=== PATIENT | female | born 1955 | race Caucasian/White ===

== ENCOUNTER 2016-09-29 19:41 | Emergency (ER) | payer BC ==
[2016-09-29 19:53] VITALS: BP 105/67; PULSE 75; TEMP 97.8; BMI 22.9
[2016-09-29] MEDS ORDERED: SODIUM CHLORIDE 1,000 ML IV STA (20:05)
[2016-09-29] MEDS ORDERED: FAMOTIDINE 20 MG/50 ML IVPB 50 ML IVPB ONE ×2 (20:05→20:23)
[2016-09-29] MEDS ORDERED: ONDANSETRON 4 MG/2 ML VIAL IVPUSH ONE (20:05)
--- NOTE | 2016-09-29 20:08 | PDOC ---
History of Present Illness - General History Source: Patient Exam Limitations: No Limitations - History of Present Illness Initial Comments: 09/29/16 20:08 The patient is a 60 year old female, with a significant past medical history of uterine fibroids, who presents to the emergency department with abdominal pain , nausea and vomit. She reports having 4-5 episodes of vomiting (nonbloody). She denies eating any new food. She reports walking up symptomatic. She reports these symptoms often come yearly or biyearly. She reports recently coming back from [employer] about 7 days ago. She also notes having a decreased appetite. She denies chest pain and shortness of breath. She denies fever, chills, headache and dizziness. She denies constipation. 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) GI Disorders: Yes (ABD PAIN) - Surgical History Abdominal Surgery: Yes (Lap Fibroidectomy) - Psycho/Social/Smoking Cessation Hx Anxiety: No Suicidal Ideation: No Smoking Status: No Smoking History: Unknown if ever smoked Have you smoked in the past 12 months: No Number of Cigarettes Smoked Daily: 0 Information on smoking cessation initiated: No Hx Alcohol Use: No Drug/Substance Use Hx: No Substance Use Type: None Hx Substance Use Treatment: No <Jonas Ferro - Last Filed: 09/29/16 21:34> - Past Medical History Allergies/Adverse Reactions: Allergies Allergy/AdvReac Type Severity Reaction Status Date / Time Penicillins Allergy Intermediate Hives Verified 06/28/12 23:06 Home Medications: Ambulatory Orders Ondansetron HCl [Zofran] 4 - 8 mg PO TID PRN #15 tablet 03/04/15 Phenobarb/Hyoscy/Atropine/Scop [ Elixir -] 5 - 10 ml PO BID PRN #90 ml 03/04/15 Sulfamethoxazole/Trimethoprim [Bactrim Ds -] 1 tab PO BID #14 tablet 03/04/15 Famotidine [Pepcid] 20 mg PO DAILY #7 tablet 09/29/16 Phenobarb/Hyoscy/Atropine/Scop [ Tablet] 16.2 mg PO TID PRN #10 tablet 09/29/16 Review of Systems - Review of Systems Able to Perform ROS?: Yes Is the patient limited Divehi proficient: No Constitutional: Yes: Symptoms Reported, See HPI, Loss of Appetite, Malaise HEENTM: No: Symptoms Reported Respiratory: No: Symptoms reported Cardiac (ROS): No: Symptoms Reported ABD/GI: Yes: Symptoms Reported, See HPI, Nausea, Vomiting : No: Symptoms Reported Neurological: No: Symptoms reported All Other Systems: Reviewed and Negative <Jonas Ferro - Last Filed: 09/29/16 21:34> *Physical Exam - Vital Signs Last Vital Signs Temp Pulse Resp BP Pulse Ox 97.8 F 75 15 105/67 100 09/29/16 19:47 09/29/16 19:47 09/29/16 19:47 09/29/16 19:47 09/29/16 19:47 <Skyler Estrella - Last Filed: 09/29/16 20:08> - Vital Signs Last Vital Signs Temp Pulse Resp BP Pulse Ox 97.8 F 75 15 105/67 100 09/29/16 19:47 09/29/16 19:47 09/29/16 19:47 09/29/16 19:47 09/29/16 19:47 - Physical Exam General Appearance: Yes: Nourished, Appropriately Dressed. No: Apparent Distress HEENT: positive: Normal ENT Inspection, Other (DRY MUCOSAE) Neck: positive: Supple. negative: Tender Respiratory/Chest: negative: Respiratory Distress Cardiovascular: positive: Regular Rhythm, Regular Rate Gastrointestinal/Abdominal: positive: Normal Bowel Sounds, Soft. negative: Tender Musculoskeletal: positive: Normal Inspection. negative: CVA Tenderness, Vertebral Tenderness Integumentary: positive: Normal Color, Dry Neurologic: positive: Fully Oriented, Alert, Normal Mood/Affect, Normal Response , Motor Strength 5/5 <Jonas Ferro - Last Filed: 09/29/16 21:34> *DC/Admit/Observation/Transfer - Attestations Scribe Attestion: 09/29/16 20:09 Documentation prepared by Skyler Estrella, acting as medical billing coordinator for Jonas Ferro MD. <Skyler Estrella - Last Filed: 09/29/16 20:08> <Jonas Ferro - Last Filed: 09/29/16 21:34> Diagnosis at time of Disposition: Acute gastritis Qualifiers: Gastritis type: unspecified gastritis Gastritis bleeding: without bleeding Qualified Code(s): K29.00 - Acute gastritis without bleeding - Discharge Dispostion Disposition: HOME Condition at time of disposition: Improved - Patient Instructions Additional Instructions: TAKE MEDICATIONS PRESCRIBED PLENTY OF FLUIDS (WATER/GATORADE) BLAND DIET, ADVANCE TOLERATED EAT FREQUENT, SMALL MEALS THROUGHOUT THE DAY MAALOX, 30 ml 1/2 HOUR AFTER MEALS AND AT BED TIME RETURN IF FEVER, VOMITING, SEVERE PAIN
[2016-09-29] MEDS ORDERED: ONDANSETRON 4 MG/2 ML VIAL ONE (20:23)
[2016-09-29] MEDS ORDERED: HYOSCYAMINE SULFATE 0.125 MG *ODT PO ONE (21:40)
[2016-09-29] MEDS ORDERED: HYOSCYAMINE SULFATE 0.125 MG *ODT ONE (21:44)
== END 2016-09-29 21:46 | disposition home or self-care (01) ==
LOC: FER 19:41
PROC: 3E033GC Introduction of Other Therapeutic Substance into Peripheral Vein, Percutaneous Approach (ICD-10-PCS; principal; 2016-09-29)
PROC: 3E0337Z Introduction of Electrolytic and Water Balance Substance into Peripheral Vein, Percutaneous Approach (ICD-10-PCS; 2016-09-29)
DX: K29.00 Acute gastritis without bleeding (principal); Z85.048 Personal history of other malignant neoplasm of rectum, rectosigmoid junction, and anus
CPT/HCPCS: 99283-25

== ENCOUNTER 2017-01-30 17:44 | Emergency (ER) | payer BC ==
[2017-01-30 18:07] VITALS: BP 152/91; PULSE 95; TEMP 97.4; BMI 21.9
[2017-01-30] MEDS ORDERED: SODIUM CHLORIDE 0.9% 500 ML INFUS.BAG IV ONE (18:50)
[2017-01-30] MEDS ORDERED: ONDANSETRON 4 MG/2 ML VIAL IVPB ONE (18:50)
[2017-01-30] MEDS ORDERED: ONDANSETRON 4 MG/2 ML VIAL ONE (18:54)
--- NOTE | 2017-01-30 18:54 | PDOC ---
History of Present Illness - General Chief Complaint: Nausea/Vomiting Stated Complaint: ABDOOMINAL PAIN WITH VOMITING WITHLOOSE STOOL Time Seen by Provider: 01/30/17 18:10 - History of Present Illness Initial Comments: 01/30/17 18:51 61-year-old female with a past medical history of anal cancer, for which she was treated with radiation and chemotherapy which was curative, and this was 7 years ago without recurrence She also has a prior history of uterine fibroids Patient is complaining of episodes of crampy abdominal pain, more in her upper midepigastric area, and then episodes of vomiting and diarrhea for the past 24 hours She denies any fevers or chills She states her pain is mostly upper midepigastric She states that these episodes have been going off and on for a few months or she'll have 24-48 hour episodes of the upper midepigastric pain vomiting and diarrhea, and then will resolve She denies any recent travel She has seen a fingernail sculpturer for this She does eat sushi She says her last CAT scan of her abdomen and pelvis was 2-3 years ago She denies any chest pain or shortness of breath She denies any blood in her vomitus She did have one episode of some blood in her stool with the last episode, but not with this episode She denies any other complaints at this time, and the remainder of the review of systems is negative 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) GI Disorders: Yes (ABD PAIN) - Surgical History Abdominal Surgery: Yes (Lap Fibroidectomy) - Psycho/Social/Smoking Cessation Hx Anxiety: No Suicidal Ideation: No Smoking Status: No Smoking History: Never smoked Have you smoked in the past 12 months: No Number of Cigarettes Smoked Daily: 0 Information on smoking cessation initiated: No Hx Alcohol Use: Yes (SOCIAL) Drug/Substance Use Hx: No Substance Use Type: Alcohol Hx Substance Use Treatment: No *Physical Exam - Vital Signs Last Vital Signs Temp Pulse Resp BP Pulse Ox 97.4 F L 95 H 16 152/91 100 01/30/17 17:47 01/30/17 17:47 01/30/17 17:47 01/30/17 17:47 01/30/17 17:47 - Physical Exam Comments: 01/30/17 18:53 Physical exam Last Vital Signs Temp Pulse Resp BP Pulse Ox 97.4 F L 95 H 16 152/91 100 01/30/17 17:47 01/30/17 17:47 01/30/17 17:47 01/30/17 17:47 01/30/17 17:47 GENERAL: The patient is awake, alert, and fully oriented, and in no apparent distress. HEAD: Normal with no signs of trauma. EYES: sclera anicteric, conjunctiva are normal. ENT: nares patent, oropharynx clear without exudates. mucous membranes slightly dry. NECK: Normal range of motion, supple LUNGS: Breath sounds equal, clear to auscultation bilaterally. No wheezes, and no crackles. HEART: Regular rate and rhythm, normal S1 and S2 without murmur, rub or gallop. ABDOMEN: The abdomen is mildly distended but soft There is mild upper midepigastric tenderness to palpation without guarding or rebound No other abdominal tenderness is noted There is no CVA tenderness EXTREMITIES: Normal range of motion, no edema. No clubbing or cyanosis. No cords, erythema, or tenderness. NEUROLOGICAL: Cranial nerves II through XII grossly intact. Normal speech, normal gait. PSYCH: Normal mood, normal affect. SKIN: Warm, Dry, normal turgor, no rashes or lesions noted. ED Treatment Course - LABORATORY CBC & Chemistry Diagram: 01/30/17 18:45 01/30/17 20:20 Medical Decision Making - Medical Decision Making 01/30/17 18:54 Story as noted above, will start with IV hydration and lab work Discussed possible CAT scan with the patient, but she is refusing a CAT scan at this time 01/30/17 19:01 EKG Normal sinus rhythm 83, normal axis Normal AV and IV conduction time Normal QTC There is inferior and septal ST-T wave abnormalities When compared to the EKG of 04/11/14 These EKG abnormalities were present on the 2013 EKG, and were more prominent on the 2013 EKG then on today's EKG 01/30/17 19:11 SIGN OUT Case discussed in detail with oncoming Emergency Physician including history, physical exam and ancillary studies. Oncoming Emergency Physician has assumed care for the patient and will complete the evaluation and treatment. Transfer of care to Dr. calderon at 7 PM awaiting all labwork *DC/Admit/Observation/Transfer Diagnosis at time of Disposition: Enteritis - Discharge Dispostion Disposition: HOME Condition at time of disposition: Stable - Patient Instructions Printed Discharge Instructions: DI for Abdominal Pain-Adult Additional Instructions: light diet as tolerated continue probiotics/psyllium as previously as needed return to ER if pain/ vomiting persists followup with your fingernail sculpturer within 5 days
[2017-01-30 19:24] LABS: BASOPHIL 0.6 % (0-2.0); EOSINOPHIL 0.3 % (0-4.5); MCHC 33.4 g/dl (32.0-36.0); MEAN PLT VOLUME 9.6 fl (7.5-11.1); NEUTROPHILS 83.2 % (42.8-82.8); PLATELET COUNT 223 K/MM3 (134-434); RDW 13.4 % (11.6-15.6); WHITE BLOOD COUNT 11.4 K/mm3 (4.0-10.8)
[2017-01-30] MEDS ORDERED: ACETAMINOPHEN INJECTION 100 ML IVPB ONE (19:24)
[2017-01-30] MEDS ORDERED: ACETAMINOPHEN 1000 MG/100 ML VIAL (NON FORMULARY) IVPB ONE (19:26)
--- NOTE | 2017-01-30 19:26 | PDOC ---
*Physical Exam - Vital Signs Last Vital Signs Temp Pulse Resp BP Pulse Ox 97.4 F L 95 H 16 152/91 100 01/30/17 17:47 01/30/17 17:47 01/30/17 17:47 01/30/17 17:47 01/30/17 17:47 ED Treatment Course - LABORATORY CBC & Chemistry Diagram: 01/30/17 18:45 01/30/17 20:20 - Medications Given in the ED: ED Medications Discontinued Medications Generic Name Dose Route Start Last Admin Trade Name Nba PRN Reason Stop Dose Admin Ondansetron HCl 4 mg 01/30/17 18:50 01/30/17 18:55 Zofran Injection IVPB 01/30/17 18:51 4 mg ONCE ONE Administration Sodium Chloride 1,000 ml 01/30/17 18:50 01/30/17 18:53 Normal Saline - IV 01/30/17 18:51 1,000 ml ONCE ONE Administration Progress Note - Progress Note Progress Note: Care of this patient received from Dr. Gonzalez. Patient felt somewhat improved after IV hydration and Zofran 4 mg IV (states that her nausea is now resolved). She was given 1 g of acetaminophen IV for residual discomfort in her abdomen. The patient states that this medication (acetaminophen) was not effective for her cramping type pain. She states that in the past, she was given IV Reglan for this type of discomfort and this was very effective. Patient has persistent thirst and on exam, mucous membranes are still dry. Patient will be given Reglan 10 mg IV as well as another liter of normal saline IV. Patient comfortable after Reglan and additional liter of normal saline. She states that she still has at home from previous episodes of this type of pain. She states that this has been effective for her mild residual cramping type pain. She has never used other antispasmodic medications such as Bentyl/Levsin. Patient currently has a manufacturing technician and has been advised to follow-up with her manufacturing technician in the near future. Patient will be discharged with instructions to continue her light diet, advancing as tolerated. She has used probiotics and psyllium in the past to avoid but has been described as partial small bowel obstruction secondary to her radiation treatments. She should continue probiotics and psyllium. She should return to the ER if she has persistent nausea/abdominal distention and pain *DC/Admit/Observation/Transfer Diagnosis at time of Disposition: Enteritis - Discharge Dispostion Disposition: HOME Condition at time of disposition: Stable - Patient Instructions Printed Discharge Instructions: DI for Abdominal Pain-Adult Additional Instructions: light diet as tolerated continue probiotics/psyllium as previously as needed return to ER if pain/ vomiting persists followup with your manufacturing technician within 5 days
[2017-01-30 20:42] LABS: ALBUMIN 3.7 g/dl (3.5-5.0); ALK PHOS 56 U/L (32-92); ANION GAP 12 (8-16); BILIRUBIN,TOTAL 1.1 mg/dl (0.2-1.0); CALCIUM 9.2 mg/dl (8.4-10.2); CO2 22 mmol/L (22-28); COCKROFT - GAULT 79.7725; CREATININE 0.7 mg/dl (0.6-1.3); GLUCOSE,RANDOM 106 mg/dl (74-106); MAGNESIUM 1.7 mg/dL (1.8-2.4); SGOT/AST 23 U/L (10-42); SGPT/ALT 19 U/L (10-40); TOT PROT 6.4 g/dl (6.4-8.3)
[2017-01-30 20:47] LABS: CPK(DFH) 96 IU/L (26-140)
[2017-01-30 20:54] LABS: TROPONIN I (DFP) < 0.03 ng/ml (0.03-0.50)
[2017-01-30] MEDS ORDERED: METOCLOPRAMIDE HCL INJECTION 10 MG/2 ML VIAL IVPB ONE (20:54)
[2017-01-30] MEDS ORDERED: SODIUM CHLORIDE 1,000 ML IV STA (20:55)
[2017-01-30] MEDS ORDERED: KETOROLAC TROMETHAMINE 30 MG/1 ML VIAL IVPUSH ONE (21:41)
[2017-01-30] MEDS ORDERED: KETOROLAC TROMETHAMINE 30 MG/1 ML VIAL ONE (21:55)
--- NOTE | 2017-01-31 13:55 | EKG ---
Test Reason : Blood Pressure : / mmHG Vent. Rate : 083 BPM Atrial Rate : 083 BPM P-R Int : 142 ms QRS Dur : 090 ms QT Int : 384 ms P-R-T Axes : 028 076 005 degrees QTc Int : 451 ms NORMAL SINUS RHYTHM POSSIBLE LEFT ATRIAL ENLARGEMENT NONSPECIFIC ST AND T WAVE ABNORMALITY NO PREVIOUS ECGS AVAILABLE Confirmed by MD OFELIA, SIN ([id number]) on 01/31/2017 1:55:26 PM Referred By: JUDE Confirmed By:SIN GILBERT MD
== END 2017-01-30 22:18 | disposition home or self-care (01) ==
LOC: FER 17:44
PROC: 3E0333Z Introduction of Anti-inflammatory into Peripheral Vein, Percutaneous Approach (ICD-10-PCS; principal; 2017-01-30)
PROC: 3E033NZ Introduction of Analgesics, Hypnotics, Sedatives into Peripheral Vein, Percutaneous Approach (ICD-10-PCS; 2017-01-30)
PROC: 3E033GC Introduction of Other Therapeutic Substance into Peripheral Vein, Percutaneous Approach (ICD-10-PCS; 2017-01-30)
PROC: 3E0337Z Introduction of Electrolytic and Water Balance Substance into Peripheral Vein, Percutaneous Approach (ICD-10-PCS; 2017-01-30)
DX: K52.9 Noninfective gastroenteritis and colitis, unspecified (principal); Z85.048 Personal history of other malignant neoplasm of rectum, rectosigmoid junction, and anus
CPT/HCPCS: 36415; 80053; 82550; 83690; 83735; 84484; 85025; 93005; 99283-25

== ENCOUNTER 2017-03-25 16:05 | Emergency (ER) | payer BC ==
[2017-03-25 16:11] VITALS: BMI 22.4
--- NOTE | 2017-03-25 16:50 | PDOC ---
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 The patient reports this is her 3rd ED visit this year for the same symptoms. The patient reports her last meal was at 5PM last night. She reports two episodes of diarrhea late last night, but states she usually has loose stool. She reports her last meal was at 5pm last night. She reports she gets waves of nausea, resulting in emesis. She denies hematemesis or hematochezia. She states eating food does not exacerbate or alleviate her symptoms. She reports waking up with abdominal cramping, localized to her epigastric region, which has been progressing in severity since the initial onset. She also states she "feels bloated" today, however, states that her abdomen "bloats whenever I experience these symptoms." She states she has not had an abdomen CT since 2013, but reports a negative colonoscopy in 2015. She denies chest pain, shortness of breath, headache and dizziness. She denies fever, chills, and constipation. She denies dysuria, frequency, urgency and hematuria. Allergies: NKDA Health Insurance Adjuster - Dr. 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) GI Disorders: Yes (ABD PAIN) - Surgical History Abdominal Surgery: Yes (Lap Fibroidectomy) - Psycho/Social/Smoking Cessation Hx Anxiety: No Suicidal Ideation: No Smoking Status: No Smoking History: Never smoked Have you smoked in the past 12 months: No Number of Cigarettes Smoked Daily: 0 Information on smoking cessation initiated: No Hx Alcohol Use: No Drug/Substance Use Hx: No Substance Use Type: Alcohol Hx Substance Use Treatment: No <Tia Cuba - Last Filed: 03/26/17 08:19> - Past Medical History Allergies/Adverse Reactions: Allergies Allergy/AdvReac Type Severity Reaction Status Date / Time Penicillins Allergy Intermediate Hives Verified 01/30/17 17:48 Home Medications: Ambulatory Orders NK [No Known Home Medication] 01/30/17 Review of Systems - Review of Systems Able to Perform ROS?: Yes Comments:: 03/25/17 17:12 GENERAL/CONSTITUTIONAL: No fever or chills. No weakness. HEAD, EYES, EARS, NOSE AND THROAT: No change in vision. No ear pain or discharge. No sore throat. CARDIOVASCULAR: No chest pain or shortness of breath. RESPIRATORY: No cough, wheezing, or hemoptysis. GASTROINTESTINAL: (+) nausea, vomiting, diarrhea, abdominal bloating, epigastric cramping. No constipation. GENITOURINARY: No dysuria, frequency, or change in urination. MUSCULOSKELETAL: No joint or muscle swelling or pain. No neck or back pain. SKIN: No rash NEUROLOGIC: No headache, vertigo, loss of consciousness, or change in strength/ sensation. ENDOCRINE: No increased thirst. No abnormal weight change. HEMATOLOGIC/LYMPHATIC: No anemia, easy bleeding, or history of blood clots. ALLERGIC/IMMUNOLOGIC: No hives or skin allergy. <Stephanie Gillespie - Last Filed: 03/25/17 17:11> *Physical Exam - Vital Signs Last Vital Signs Temp Pulse Resp BP Pulse Ox 98.8 F 84 18 117/80 100 03/25/17 16:06 03/25/17 16:06 03/25/17 16:06 03/25/17 16:06 03/25/17 16:06 - Physical Exam Comments: 03/25/17 17:13 GENERAL: Awake, alert, and fully oriented, in no acute distress HEAD: No signs of trauma EYES: PERRLA, EOMI, sclera anicteric, conjunctiva clear ENT: (+) Dry mucosa. Auricles normal inspection, hearing grossly normal, nares patent, oropharynx clear without exudates. NECK: Normal ROM, supple, no lymphadenopathy, JVD, or masses LUNGS: Breath sounds equal, clear to auscultation bilaterally. No wheezes, and no crackles HEART: Regular rate and rhythm, normal S1 and S2, no murmurs, rubs or gallops ABDOMEN: (+) distended. tender to the epigastric region with mild tenderness to the RLQ. Soft, normoactive bowel sounds. No guarding, no rebound. No masses EXTREMITIES: Normal range of motion, no edema. No clubbing or cyanosis. No cords, erythema, or tenderness NEUROLOGICAL: Cranial nerves II through XII grossly intact. Normal speech, normal gait SKIN: Warm, Dry, normal turgor, no rashes or lesions noted. <Stephanie Gillespie - Last Filed: 03/25/17 17:11> - Vital Signs Last Vital Signs Temp Pulse Resp BP Pulse Ox 98.8 F 84 18 117/80 100 03/25/17 16:06 03/25/17 16:06 03/25/17 16:06 03/25/17 16:06 03/25/17 16:06 - Physical Exam Comments: GENERAL: Awake, alert, and fully oriented, in no acute distress HEAD: No signs of trauma EYES: PERRLA, EOMI, sclera anicteric, conjunctiva clear ENT: Auricles normal inspection, hearing grossly normal, nares patent, oropharynx clear without exudates. Dry mucosa NECK: Normal ROM, supple, no lymphadenopathy, JVD, or masses LUNGS: Breath sounds equal, clear to auscultation bilaterally. No wheezes, and no crackles HEART: Regular rate and rhythm, normal S1 and S2, no murmurs, rubs or gallops ABDOMEN: Soft, +gaseous distension, with epigastric tenderness. Normoactive bowel sounds. No rebound. No masses EXTREMITIES: Normal range of motion, no edema. No clubbing or cyanosis. No cords , erythema, or tenderness NEUROLOGICAL: Cranial nerves II through XII grossly intact. Normal speech, normal gait SKIN: Warm, Dry, normal turgor, no rashes or lesions noted. 03/25/17 17:05 <Tia Cuba - Last Filed: 03/26/17 08:19> ED Treatment Course - LABORATORY CBC & Chemistry Diagram: 03/25/17 17:29 03/25/17 17:29 <Tia Cuba - Last Filed: 03/26/17 08:19> Medical Decision Making - Medical Decision Making 03/25/17 19:[address] Etienne at shift change. Patient has history of rectal CA s/p radiation, known to have scarring. She has been told in the past that she must take fiber to avoid constipation due to the scarring. On exam, she appears dehydrated and uncomfortable. She was notably tender to RLQ with distended abdomen, which she states has had with prior similar episodes of same symptoms. On repeat exam she continues to have "soreness" on palpation of the RLQ. XR shows significant constipation. <Tia Cuba - Last Filed: 03/26/17 08:19> *DC/Admit/Observation/Transfer - Attestations Scribe Attestion: 03/25/17 17:14 Documentation prepared by Stephanie Gillespie, acting as durable medical equipment technician for Tia Cuba MD, <Stephanie Gillespie - Last Filed: 03/25/17 17:11> <Tia Cuba - Last Filed: 03/26/17 08:19> Diagnosis at time of Disposition: History of abdominal pain - Discharge Dispostion Disposition: HOME Condition at time of disposition: Stable - Patient Instructions Printed Discharge Instructions: DI for Abdominal Pain-Adult Additional Instructions: light diet, advance slowly drink plenty of fluids pepcid 20 mg daily can take miralax daily as needed followup with repair clerk within 5 days return to ER immediately if pain worsens or you develop vomiting/fever
[2017-03-25] MEDS ORDERED: SODIUM CHLORIDE 1,000 ML IV STA ×2 (17:02→19:11)
[2017-03-25] MEDS ORDERED: morphine CARPU-JECT 4 MG/1 ML DISP.SYRIN IVPUSH ONE (17:02)
[2017-03-25] MEDS ORDERED: ONDANSETRON 4 MG/2 ML VIAL IVPUSH ONE (17:02)
[2017-03-25] MEDS ORDERED: morphine CARPU-JECT 4 MG/1 ML DISP.SYRIN ONE (17:13)
[2017-03-25] MEDS ORDERED: ONDANSETRON 4 MG/2 ML VIAL ONE (17:13)
[2017-03-25] MEDS ORDERED: FAMOTIDINE 20 MG/50 ML IVPB 50 ML IVPB ONE ×2 (17:20→17:22)
[2017-03-25 17:59] LABS: BASOPHIL 0.3 % (0-2.0); EOSINOPHIL 0.2 % (0-4.5); MCH 30.1 pg (25.7-33.7); MCHC 33.5 g/dl (32.0-36.0); MEAN CELL VOLUME 89.9 fl (80-96); MEAN PLT VOLUME 9.4 fl (7.5-11.1); PLATELET COUNT 215 K/MM3 (134-434); RDW 12.9 % (11.6-15.6); WHITE BLOOD COUNT 10.6 K/mm3 (4.0-10.8)
[2017-03-25 18:10] LABS: ALBUMIN 4.3 g/dl (3.5-5.0); ALK PHOS 53 U/L (32-92); ANION GAP 8 (8-16); BILIRUBIN,TOTAL 1.2 mg/dl (0.2-1.0); CALCIUM 9.6 mg/dl (8.4-10.2); CO2 25 mmol/L (22-28); CREATININE 0.7 mg/dl (0.6-1.3); GLUCOSE,RANDOM 101 mg/dl (74-106); SGOT/AST 16 U/L (10-42); SGPT/ALT 17 U/L (10-40); TOT PROT 6.9 g/dl (6.4-8.3)
--- NOTE | 2017-03-25 19:17 | PDOC ---
*Physical Exam - Vital Signs Last Vital Signs Temp Pulse Resp BP Pulse Ox 98.8 F 84 18 117/80 100 03/25/17 16:06 03/25/17 16:06 03/25/17 16:06 03/25/17 17:20 03/25/17 16:06 - Physical Exam Comments: GENERAL: Adult female, alert and oriented 3, in no acute distress ENT: Dry mucous membranes. ABDOMEN:.Hypoactive bowel sounds, soft, mildly distended ; mild tenderness suprapubic region just to the right of midline No guarding,tenderness or rebound.No masses ED Treatment Course - LABORATORY CBC & Chemistry Diagram: 03/25/17 17:29 03/25/17 17:29 - ADDITIONAL ORDERS Additional order review: Laboratory Results 03/25/17 17:29 Sodium 135 L Potassium 4.2 Chloride 102 Carbon Dioxide 25 Anion Gap 8 BUN 12 Creatinine 0.7 Creat Clearance w eGFR > 60 Random Glucose 101 Calcium 9.6 Total Bilirubin 1.2 H AST 16 D ALT 17 Alkaline Phosphatase 53 Total Protein 6.9 Albumin 4.3 Lipase 32 03/25/17 17:29 RBC 5.39 H MCV 89.9 MCHC 33.5 RDW 12.9 MPV 9.4 Neutrophils % 84.0 H Lymphocytes % 8.5 Monocytes % 7.0 Eosinophils % 0.2 Basophils % 0.3 - Medications Given in the ED: ED Medications Discontinued Medications Generic Name Dose Route Start Last Admin Trade Name Freq PRN Reason Stop Dose Admin Sodium Chloride 1,000 mls @ 1,000 mls/hr 03/25/17 17:02 03/25/17 17:20 Normal Saline - IV 03/25/17 18:01 1,000 mls/hr ASDIR STA Administration Famotidine/Sodium Chloride 50 mls @ 100 mls/hr 03/25/17 17:20 03/25/17 17:24 Pepcid 20 Mg Premixed Ivpb - IVPB 03/25/17 17:49 100 mls/hr ONCE ONE Administration Morphine Sulfate 4 mg 03/25/17 17:02 03/25/17 17:21 Morphine Injection - IVPUSH 03/25/17 17:03 4 mg ONCE ONE Administration Ondansetron HCl 4 mg 03/25/17 17:02 03/25/17 17:21 Zofran Injection IVPUSH 03/25/17 17:03 4 mg ONCE ONE Administration Medical Decision Making - Medical Decision Making 03/25/17 20:42 Care of this patient received from Dr. Cuba. Patient receiving second liter of normal saline IV. She continues to be comfortable without recurrence of severe abdominal pain or nausea. Patient reexamined (had been examined by me at sign out, 7 PM). There is less tenderness at the area to the right of midline, suprapubic region then observed on first examination. Patient discharged with instructions to continue light diet and advance slowly. If at any time, she develops worsening pain, fever or vomiting, she should return to the emergency room. Pepcid 20 mg daily should be continued She asked if she could take MiraLAX if she has constipation and this also could be taken as needed The patient needs to follow up with a hose tender. Although she likes her current hose tender and he has seen her for a long time, she feels she might benefit by a second opinion. She has a friend who is followed by a hose tender at [place] and is very satisfied with his care; she plans to see this hose tender in the near future. *DC/Admit/Observation/Transfer Diagnosis at time of Disposition: History of abdominal pain - Discharge Dispostion Disposition: HOME Condition at time of disposition: Stable - Patient Instructions Printed Discharge Instructions: DI for Abdominal Pain-Adult Additional Instructions: light diet, advance slowly drink plenty of fluids pepcid 20 mg daily can take miralax daily as needed followup with hose tender within 5 days return to ER immediately if pain worsens or you develop vomiting/fever
[2017-03-25 20:22] VITALS: BP 116/68; PULSE 76; TEMP 98.4
== END 2017-03-25 21:10 | disposition home or self-care (01) ==
LOC: FER 16:05
PROC: 3E033GC Introduction of Other Therapeutic Substance into Peripheral Vein, Percutaneous Approach (ICD-10-PCS; principal; 2017-03-25)
PROC: 3E033NZ Introduction of Analgesics, Hypnotics, Sedatives into Peripheral Vein, Percutaneous Approach (ICD-10-PCS; 2017-03-25)
PROC: 3E0337Z Introduction of Electrolytic and Water Balance Substance into Peripheral Vein, Percutaneous Approach (ICD-10-PCS; 2017-03-25)
DX: R10.9 Unspecified abdominal pain (principal); Z85.048 Personal history of other malignant neoplasm of rectum, rectosigmoid junction, and anus
CPT/HCPCS: 36415; 74020-TC; 80053; 83690; 85025; 99283-25

== ENCOUNTER 2017-04-03 04:06 | Emergency (ER) | payer BC ==
--- NOTE | 2017-04-03 04:10 | PDOC ---
History of Present Illness - General Chief Complaint: Pain, Acute Stated Complaint: RECURRING ABD PAIN Time Seen by Provider: 04/03/17 04:09 History Source: Patient Exam Limitations: No Limitations - History of Present Illness Initial Comments: 04/03/17 04:34 This is a 61-year-old female who has history of intermittent severe abdominal pain. Patient is had multiple visits to this emergency department for evaluation of her abdominal pain. Patient pain is associated with some nausea vomiting and she denies any fevers, diarrhea. Patient said her pain is primarily upper abdominal area epigastric area and associated with some abdominal distention. Patient's describes the pain as crampy PAST MEDICAL HISTORY: no significant history PAST SURGICAL HISTORY: no significant history FAMILY HISTORY: no pertinant history SOCIAL HISTORY: Pt lives with family and is employed. MEDICATIONS: reviewed ALLERGIES: As per nursing notes General: No fevers or chills, no weakness, no weight loss HEENT: No change in vision. No sore throat,. No ear pain CardioVascular: No chest pain or shortness of breath Respiratory:No cough, or wheezing. Gastrointestinal: no nausea, vomitting, diarrhea or constipation, No rectal bleeding Genitourinary: No dysuria, hematuria, or frequency Musculoskeletal: No joint or muscle pain or swelling Neurologic: No headache, vertigo, dizziness or loss of consciousness Psychiatric: nor depression Skin: No rashes or easy bruising Endocrine: no increased thirst or abnormal weight change Allergic: no skin or latex allergy All other systems reviewed and normal Exam: General: Well-nourished well-developed individual, no acute distress HEENT: Throat: Normal, tonsils normal, no erythema or exudate Neck: Supple, no meningeal signs, no lymphadenopathy Eyes::Pupils equal reactive and round, extraocular motion intact Chest: Nontender to palpation Cardiac: S1-S2 normal, regular rate and rhythm, no murmurs rubs or gallops Respiratory: Lungs clear to auscultation bilateral Abdomen: Soft, nondistended, normal bowel sounds, mildly tender to palpation across the upper abdomen no guarding or rebound there is some mild distention of the mid abdomen Extremities: Warm, dry, no cyanosis, clubbing, or edema Skin: No rashes Neuro: Alert and oriented x3, nonfocal exam, grossly intact, normal gait Psych: Normal mood and affect Patient was treated with IV fluids, antispasmodics, and some pain medication. Patient feels better, her workup was normal and that she was discharged home with her . Patient has a primary care doctor that she can follow-up with. 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) GI Disorders: Yes (ABD PAIN) - Surgical History Abdominal Surgery: Yes (Lap Fibroidectomy) - Psycho/Social/Smoking Cessation Hx Anxiety: No Suicidal Ideation: No Smoking Status: No Smoking History: Never smoked Have you smoked in the past 12 months: No Number of Cigarettes Smoked Daily: 0 Hx Alcohol Use: No Drug/Substance Use Hx: No Substance Use Type: Alcohol Hx Substance Use Treatment: No ED Treatment Course - LABORATORY CBC & Chemistry Diagram: 04/03/17 04:49 04/03/17 04:49 *DC/Admit/Observation/Transfer Diagnosis at time of Disposition: Abdominal pain - Discharge Dispostion Disposition: HOME Condition at time of disposition: Stable Admit: No - Patient Instructions Additional Instructions: Follow-up with a GI doctor regarding her abdominal pain. Return to the emergency department immediately with ANY new, persistent or worsening symptoms. Continue any medications as previously prescribed by your physician. You should follow up with your primary doctor as soon as possible regarding today's emergency department visit. . Please make sure your doctor reviews the results of your emergency evaluation. Thank you for coming to the Emergency Department today for your care. It was a pleasure to see you today. Please note that your evaluation is INCOMPLETE until you follow-up with your doctor.
[2017-04-03 04:16] VITALS: BP 142/90; PULSE 83; TEMP 97.9; BMI 22.4
[2017-04-03] MEDS ORDERED: HYOSCYAMINE SULFATE 0.125 MG *ODT PO ONE (04:33)
[2017-04-03] MEDS ORDERED: FAMOTIDINE 20 MG/50 ML IVPB 50 ML IVPB ONE ×2 (04:33→04:42)
[2017-04-03] MEDS ORDERED: SODIUM CHLORIDE 1,000 ML IV ONE (04:34)
[2017-04-03] MEDS ORDERED: morphine CARPU-JECT 4 MG/1 ML DISP.SYRIN IVPUSH ONE (04:34)
[2017-04-03] MEDS ORDERED: ONDANSETRON 4 MG/2 ML VIAL IVPB ONE (04:35)
[2017-04-03] MEDS ORDERED: ONDANSETRON 4 MG/2 ML VIAL ONE (04:42)
[2017-04-03] MEDS ORDERED: morphine CARPU-JECT 4 MG/1 ML DISP.SYRIN ONE (04:42)
[2017-04-03] MEDS ORDERED: HYOSCYAMINE SULFATE 0.125 MG *ODT ONE (04:42)
[2017-04-03 05:54] LABS: BASOPHIL 0.3 % (0-2.0); EOSINOPHIL 0.2 % (0-4.5); MCH 30.1 pg (25.7-33.7); MCHC 33.4 g/dl (32.0-36.0); MEAN CELL VOLUME 90.2 fl (80-96); MEAN PLT VOLUME 9.7 fl (7.5-11.1); NEUTROPHILS 83.2 % (42.8-82.8); PLATELET COUNT 201 K/MM3 (134-434); RDW 13.4 % (11.6-15.6); WHITE BLOOD COUNT 7.6 K/mm3 (4.0-10.0)
[2017-04-03 06:16] LABS: ALBUMIN 3.6 g/dl (3.4-5.0); ALK PHOS 54 U/L (45-117); ANION GAP 8 (8-16); BILIRUBIN,TOTAL 0.4 mg/dL (0.2-1.0); CALCIUM 9.5 mg/dL (8.5-10.1); CO2 26 mmol/L (21-32); CREATININE 0.7 mg/dL (0.55-1.02); GLUCOSE,RANDOM 117 mg/dL (74-106); SGOT/AST 16 U/L (15-37); SGPT/ALT 26 U/L (12-78); TOT PROT 6.5 g/dl (6.4-8.2)
[2017-04-03 07:00] LABS: TROPONIN I < 0.02 ng/ml (0.00-0.05)
--- NOTE | 2017-04-04 08:27 | EKG ---
Test Reason : Blood Pressure : / mmHG Vent. Rate : 077 BPM Atrial Rate : 077 BPM P-R Int : 132 ms QRS Dur : 094 ms QT Int : 408 ms P-R-T Axes : 030 060 017 degrees QTc Int : 461 ms SINUS RHYTHM POSSIBLE LEFT ATRIAL ENLARGEMENT NONSPECIFIC ST AND T WAVE ABNORMALITY WHEN COMPARED WITH ECG OF 30-JAN-2017 18:47, T WAVE INVERSION LESS EVIDENT IN ANTERIOR LEADS Confirmed by LEANNA MARIN MD ([id number]) on 04/04/2017 8:26:58 AM Referred By: MD LONG Confirmed By:LEANNA MARIN MD
== END 2017-04-03 06:57 | disposition home or self-care (01) ==
LOC: FER 04:06
PROC: 3E033GC Introduction of Other Therapeutic Substance into Peripheral Vein, Percutaneous Approach (ICD-10-PCS; principal; 2017-04-03)
PROC: 3E033NZ Introduction of Analgesics, Hypnotics, Sedatives into Peripheral Vein, Percutaneous Approach (ICD-10-PCS; 2017-04-03)
PROC: 3E0337Z Introduction of Electrolytic and Water Balance Substance into Peripheral Vein, Percutaneous Approach (ICD-10-PCS; 2017-04-03)
DX: R10.13 Epigastric pain (principal); Z85.048 Personal history of other malignant neoplasm of rectum, rectosigmoid junction, and anus
CPT/HCPCS: 36415; 80053; 82550; 82553; 83690; 84484; 85025; 93005; 99283-25

== ENCOUNTER 2017-05-06 23:15 | Emergency (ER) | payer BC ==
[2017-05-06 23:31] VITALS: BP 136/90; PULSE 82; TEMP 98; BMI 22.4
[2017-05-07] MEDS ORDERED: FAMOTIDINE 20 MG/50 ML IVPB 50 ML IVPB ONE ×2 (00:19→01:08)
[2017-05-07] MEDS ORDERED: ONDANSETRON 4 MG/2 ML VIAL ONE (00:22)
--- NOTE | 2017-05-07 00:51 | PDOC ---
History of Present Illness - General Chief Complaint: Pain Stated Complaint: N/V/ABD PAIN Time Seen by Provider: 05/07/17 00:30 - History of Present Illness Initial Comments: This 61-year-old woman with a history of recurrent epigastric pain presents with several hour history of her usual epigastric discomfort accompanied by nausea and vomiting. Patient states she has vomited twice in the last several hours; vomitus was partially digested food without blood or coffee ground material. Patient has had recent workup by a new emergency medicine specialist. She states that she is on a new dietary regimen, which has worked to prevent further episodes of epigastric pain until tonight. She believes she may have eaten too much broccoli over the last 24 hours. She denies fever or chills ; no changes in bowel movements. 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) GI Disorders: Yes (ABD PAIN) - Surgical History Abdominal Surgery: Yes (Lap Fibroidectomy) - Psycho/Social/Smoking Cessation Hx Anxiety: No Suicidal Ideation: No Smoking Status: No Smoking History: Never smoked Have you smoked in the past 12 months: No Number of Cigarettes Smoked Daily: 0 Hx Alcohol Use: No Drug/Substance Use Hx: No Substance Use Type: Alcohol Hx Substance Use Treatment: No Review of Systems - Review of Systems Able to Perform ROS?: Yes Comments:: 12 point review of systems is negative except for what is noted in the history of present illness *Physical Exam - Vital Signs Last Vital Signs Temp Pulse Resp BP Pulse Ox 98 F 82 18 136/90 99 05/06/17 23:29 05/06/17 23:29 05/06/17 23:29 05/06/17 23:29 05/06/17 23:29 - Physical Exam Comments: GENERAL: Adult female, alert and oriented 3, in moderate distress secondary to epigastric pain HEAD: Normal with no signs of trauma. EYES: PERRLA, EOMI, sclera anicteric, conjunctiva clear. ENT: Ears normal, nares patent, oropharynx clear without exudates. Dry mucous membranes. NECK: Normal range of motion, supple without lymphadenopathy, JVD, or masses. LUNGS: Breath sounds equal, clear to auscultation bilaterally. No wheezes, and no crackles. HEART:Regular rate and rhythm, normal S1 and S2 without murmur, rub or gallop. ABDOMEN:.normal bowel sounds . Moderate epigastric tenderness. No guarding or rebound.No masses No distention. EXTREMITIES: Normal range of motion, no edema. No clubbing or cyanosis. No erythema, or tenderness. NEUROLOGICAL: Cranial nerves II through XII grossly intact. Normal speech. No focal neurological deficits. MUSCULOSKELETAL: Back non-tender to palpation, no CVA tenderness SKIN: Warm, Dry, normal turgor, no rashes or lesions noted. Progress Note - Progress Note Progress Note: This 61-year-old woman, with a long history of recurrent abdominal pain presents with several hour history of her usual epigastric pain accompanied by nausea and vomiting. Patient believes that today's episode may be related to excessive fiber (broccoli) in her diet over the last 24 hours. There is no history of hematemesis/coffee ground vomitus. Exam reveals some epigastric tenderness but no peritoneal signs. There is no abdominal distention and bowel sounds are normal. Patient describes the pain as her "usual" pain, and it is not accompanied by evidence of small bowel obstruction. The patient was given Zofran 4 mg IV followed by Pepcid 20 mg IV. After this, she had no nausea and no further vomiting. Patient states in the past that one dose of morphine has been effective in resolving the pain. Since the patient does not appear to be obstructed and the patient has a known history of chronic epigastric pain, morphine 4 mg IV administered. Soon after morphine IV given, the patient was comfortable and ready to go home. She had no further nausea/vomiting. She will call her emergency medicine specialist to schedule follow-up. She should return to the emergency room if she has any recurrent pain/vomiting or develops fever *DC/Admit/Observation/Transfer Diagnosis at time of Disposition: Chronic abdominal pain - Discharge Dispostion Disposition: HOME Condition at time of disposition: Stable - Referrals Referrals: STAFF,NOT ON [Primary Care Provider] - - Patient Instructions Printed Discharge Instructions: DI for Abdominal Pain-Adult Additional Instructions: continue dietary regimen as previously discussed with your doctor return to ER if severe, persistent abdominal pain or nausea/vomiting occurs call your doctor on Tuesday(05/06) and followup as scheduled
[2017-05-07] MEDS ORDERED: morphine CARPU-JECT 4 MG/1 ML DISP.SYRIN IVPUSH ONE (01:02)
[2017-05-07] MEDS ORDERED: morphine CARPU-JECT 4 MG/1 ML DISP.SYRIN ONE (01:05)
[2017-05-07] MEDS ORDERED: ONDANSETRON 4 MG/2 ML VIAL IVPUSH ONE (01:09)
== END 2017-05-07 02:21 | disposition home or self-care (01) ==
LOC: FER 23:15
PROC: 3E033GC Introduction of Other Therapeutic Substance into Peripheral Vein, Percutaneous Approach (ICD-10-PCS; principal; 2017-05-06)
PROC: 3E033NZ Introduction of Analgesics, Hypnotics, Sedatives into Peripheral Vein, Percutaneous Approach (ICD-10-PCS; 2017-05-06)
DX: R10.13 Epigastric pain (principal)
CPT/HCPCS: 99282-25

== ENCOUNTER 2017-06-28 08:57 | Emergency (ER) | payer BC ==
[2017-06-28 09:20] VITALS: TEMP 98; BMI 21.6
--- NOTE | 2017-06-28 09:25 | PDOC ---
History of Present Illness - General Chief Complaint: Pain Stated Complaint: ABD PAIN Time Seen by Provider: 06/28/17 09:15 - History of Present Illness Initial Comments: 06/28/17 10:19 Chief complaint: Abdominal pain History of present illness: Patient was awakened early this morning with crampy epigastric pain, nausea, and retching. The pain is localized to the epigastric region, is momentary, crampy, but recurrent. She has vomited a small amount of clear fluid. She had a normal bowel movement this morning. There is been no recent melena or bloody stools. The patient has a history of recurrent episodes such as this requiring emergency room treatment, resolving spontaneously. She is under the care of a material hauler at [facility], who attributes her symptoms to prior radiation and chemotherapy for anal cancer, which he is monitoring and of which there has been no sign of recurrence. Review of systems: No fever/chills, chest pain, shortness of breath, visual or focal neurologic symptoms, unsteadiness of gait. No lightheadedness, dizziness, vertigo. All other systems reviewed and found to be negative Past medical history: Anal cancer, treated with chemotherapy and radiation, followed regularly and no sign of recurrence. Otherwise negative including coronary artery disease, diabetes, or other cancers. Nuclear stress test in 2013 was normal. Abdominal x-ray in March 2017 was negative. CAT scan 14 negative. 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 Denies recent stress. Fully active and without disability Family history: Reviewed and noncontributory including GI disease, cancer, early coronary artery disease, and metabolic diseases such as diabetes Physical exam: Alert and oriented, no apparent distress, cooperative Afebrile, vital signs normal including orthostatics. No pallor or icterus. PERRLA, conjunctivae clear, fundi benign, ENT clear Neck supple without bruit mass or nodes Chest clear CV regular without murmur rub or gallop Abdomen nondistended. Bowel sounds normal. Soft without mass or organomegaly. There is mild tenderness to deep palpation confined to the epigastrium, without guarding or rebound. No CVAT Extremities no CCE Skin clear, no rash, adequate turgor and wet mucous membranes Neurological intact Impression: Recurrent symptoms of crampy epigastric pain nausea and vomiting, pain being momentary but recurrent, no precipitating causes have been identified but attributed in the past to radiation and chemotherapy. Always resolving spontaneously with anti-emetics, antacids, and analgesics. No finding suggestive of acute abdomen. Plan: Symptomatic treatment, further evaluation depending on results of laboratory work and response to therapy. Past History - Past Medical History Allergies/Adverse Reactions: Allergies Allergy/AdvReac Type Severity Reaction Status Date / Time Penicillins Allergy Intermediate Hives Verified 06/28/17 08:59 Home Medications: Ambulatory Orders Acetaminophen W/ Codeine #3 [Tylenol # 3] 1 - 2 combo PO Q4H PRN #15 tablet MDD 8 06/28/17 Ondansetron [Zofran Odt -] 4 mg SL TID PRN #15 od.tablet 06/28/17 Cancer: Yes (squamous cell, CA of anus) GI Disorders: Yes (ABD PAIN) - Surgical History Abdominal Surgery: Yes (Lap Fibroidectomy) - Suicide/Smoking/Psychosocial Hx Smoking Status: No Smoking History: Never smoked Have you smoked in the past 12 months: No Number of Cigarettes Smoked Daily: 0 Information on smoking cessation initiated: No Hx Alcohol Use: No Drug/Substance Use Hx: No Substance Use Type: Alcohol Hx Substance Use Treatment: No *Physical Exam - Vital Signs Last Vital Signs Temp Pulse Resp BP Pulse Ox 98 F 81 20 83/62 100 06/28/17 08:58 06/28/17 08:58 06/28/17 08:58 06/28/17 08:58 06/28/17 08:58 ED Treatment Course - LABORATORY CBC & Chemistry Diagram: 06/28/17 10:09 06/28/17 10:09 *DC/Admit/Observation/Transfer Diagnosis at time of Disposition: Gastritis Qualifiers: Gastritis type: unspecified gastritis Chronicity: chronic Gastritis bleeding: without bleeding Qualified Code(s): K29.50 - Unspecified chronic gastritis without bleeding; K29.50 - Unspecified chronic gastritis without bleeding - Discharge Dispostion Disposition: HOME Condition at time of disposition: Improved Admit: No - Prescriptions Prescriptions: Acetaminophen W/ Codeine #3 [Tylenol # 3] 1 - 2 combo PO Q4H PRN #15 tablet MDD 8 PRN Reason: Severe Pain Ondansetron [Zofran Odt -] 4 mg SL TID PRN #15 od.tablet PRN Reason: Nausea And/Or Vomiting - Patient Instructions Printed Discharge Instructions: DI for Gastritis Additional Instructions: See your material hauler for further evaluation within 1 week Return to ER if pain recurs, is severe, or is accompanied by prolonged nausea or vomiting, fever or chills, or blood in the emesis or stool.
[2017-06-28] MEDS ORDERED: ONDANSETRON 4 MG/2 ML VIAL ONE ×2 (09:43→12:14)
[2017-06-28] MEDS ORDERED: morphine CARPU-JECT 4 MG/1 ML DISP.SYRIN ONE ×2 (09:44→12:15)
[2017-06-28] MEDS ORDERED: PANTOPRAZOLE SODIUM 40 MG VIAL ONE (09:44)
[2017-06-28] MEDS ORDERED: SODIUM CHLORIDE 1,000 ML IV STA (09:47)
[2017-06-28] MEDS ORDERED: ONDANSETRON 4 MG/2 ML VIAL IVPB ONE ×2 (09:47→13:08)
[2017-06-28] MEDS ORDERED: PANTOPRAZOLE SODIUM 40 MG in SODIUM CHLORIDE 100 ML IVPB ONE (09:47)
[2017-06-28] MEDS ORDERED: morphine CARPU-JECT 4 MG/1 ML DISP.SYRIN IVPUSH ONE ×2 (09:48→13:08)
[2017-06-28 10:14] LABS: BASOPHIL 1.1 % (0-2.0); EOSINOPHIL 0.4 % (0-4.5); MCH 30.3 pg (25.7-33.7); MCHC 33.3 g/dl (32.0-36.0); MEAN PLT VOLUME 9.8 fl (7.5-11.1); NEUTROPHILS 84.1 % (42.8-82.8); PLATELET COUNT 214 K/MM3 (134-434); RDW 13.6 % (11.6-15.6); WHITE BLOOD COUNT 9.5 K/mm3 (4.0-10.8)
[2017-06-28 10:15] VITALS: BP 134/87; PULSE 89
[2017-06-28 10:44] LABS: ALBUMIN 4.2 g/dl (3.5-5.0); ALK PHOS 51 U/L (32-92); ANION GAP 8 (8-16); BILIRUBIN,TOTAL 0.8 mg/dl (0.2-1.0); CALCIUM 9.9 mg/dl (8.4-10.2); CO2 29 mmol/L (22-28); CREATININE 0.8 mg/dl (0.6-1.3); GLUCOSE,RANDOM 140 mg/dl (74-106); SGOT/AST 18 U/L (10-42); SGPT/ALT 20 U/L (10-40)
[2017-06-28] MEDS ORDERED: METOCLOPRAMIDE HCL INJECTION 10 MG/2 ML VIAL IVPUSH ONE (16:20)
== END 2017-06-28 18:51 | disposition home or self-care (01) ==
LOC: FER 08:57
PROC: 3E033NZ Introduction of Analgesics, Hypnotics, Sedatives into Peripheral Vein, Percutaneous Approach (ICD-10-PCS; principal; 2017-06-28)
PROC: 3E033GC Introduction of Other Therapeutic Substance into Peripheral Vein, Percutaneous Approach (ICD-10-PCS; 2017-06-28)
PROC: 3E0337Z Introduction of Electrolytic and Water Balance Substance into Peripheral Vein, Percutaneous Approach (ICD-10-PCS; 2017-06-28)
DX: K29.50 Unspecified chronic gastritis without bleeding (principal); Z85.048 Personal history of other malignant neoplasm of rectum, rectosigmoid junction, and anus
CPT/HCPCS: 36415; 80053; 85025; 99283-25

== ENCOUNTER 2017-11-07 17:18 | Emergency (ER) | payer BC ==
[2017-11-07 17:24] VITALS: BMI 21.6
[2017-11-07] MEDS ORDERED: ONDANSETRON 4 MG/2 ML VIAL IVPB ONE (17:24)
[2017-11-07] MEDS ORDERED: morphine CARPU-JECT 4 MG/1 ML DISP.SYRIN IVPUSH ONE ×2 (17:24→19:04)
[2017-11-07] MEDS ORDERED: SODIUM CHLORIDE 1,000 ML IV STA (17:24)
[2017-11-07] MEDS ORDERED: FAMOTIDINE IV 20 MG/12 ML VIAL IVPUSH ONE (17:25)
[2017-11-07] MEDS ORDERED: morphine SULFATE 4 MG/ML VIAL ONE ×2 (17:41→19:05)
[2017-11-07] MEDS ORDERED: ONDANSETRON 4 MG/2 ML VIAL ONE (17:41)
[2017-11-07 18:12] LABS: BASO % 0.6 % (0-2.0); HEMATOCRIT 45.1 % (32.4-45.2); HEMOGLOBIN 15.5 GM/dl (10.7-15.3); LYMPH % 7.5 % (8-40); MCH 30.7 pg (25.7-33.7); MCHC 34.5 g/dl (32.0-36.0); MEAN CELL VOLUME 89.1 fl (80-96); MEAN PLT VOLUME 9.4 fl (7.5-11.1); MONO % 2.3 % (3.8-10.2); NEUT % 89.6 % (42.8-82.8); PLATELET COUNT 229 K/MM3 (134-434); RBC 5.06 M/mm3 (3.60-5.2); RDW 12.4 % (11.6-15.6); WHITE BLOOD COUNT 10.5 K/mm3 (4.0-10.8)
[2017-11-07 18:23] LABS: ALBUMIN 4.2 g/dl (3.5-5.0); ALK PHOS 47 U/L (32-92); ANION GAP 12 (8-16); BILIRUBIN,TOTAL 0.9 mg/dl (0.2-1.0); BLOOD UREA NITROGEN 14 mg/dl (7-18); CALCIUM 9.6 mg/dl (8.4-10.2); CHLORIDE 100 mmol/L (98-107); CO2 26 mmol/L (22-28); CREATININE 0.8 mg/dl (0.6-1.3); GLUCOSE,RANDOM 138 mg/dl (74-106); POTASSIUM 3.9 mmol/L (3.5-5.1); SGOT/AST 17 U/L (10-42); SGPT/ALT 20 U/L (10-40); SODIUM 138 mmol/L (136-145); TOT PROT 6.9 g/dl (6.4-8.3)
--- NOTE | 2017-11-07 18:44 | PDOC ---
History of Present Illness - General History Source: Patient Exam Limitations: No Limitations <Silvano Escobedo - Last Filed: 11/07/17 18:39> - History of Present Illness Initial Comments: 11/07/17 18:46 61-year-old female with past medical history of Recurrent chronic abdominal pain status post colorectal cancer status post radiation presents with acute on chronic abdominal pain. Patient reports that this is acute on chronic low abdominal pain and she follows up with Dr. Javier at [facility]. States that these episodes of abdominal pain occurs and that improved on its own. However, patient reports that when the pain is so severe she needs IV medications. Denies fevers or chills. Denies any new or changed symptoms. Came to the ED for further evaluation. <Karlee Daniels - Last Filed: 11/07/17 18:49> - General Chief Complaint: Nausea/Vomiting Stated Complaint: ABDOMINAL PAIN Time Seen by Provider: 11/07/17 17:23 Past History - Past Medical History Cancer: Yes (squamous cell, CA of anus) COPD: No GI Disorders: Yes (ABD PAIN) - Surgical History Abdominal Surgery: Yes (Lap Fibroidectomy) - Suicide/Smoking/Psychosocial Hx Smoking Status: No Smoking History: Never smoked Have you smoked in the past 12 months: No Number of Cigarettes Smoked Daily: 0 Hx Alcohol Use: No Drug/Substance Use Hx: No Substance Use Type: Alcohol Hx Substance Use Treatment: No <Silvano Escobedo - Last Filed: 11/07/17 18:39> <Karlee Daniels - Last Filed: 11/07/17 18:49> - Past Medical History Allergies/Adverse Reactions: Allergies Allergy/AdvReac Type Severity Reaction Status Date / Time Penicillins Allergy Intermediate Hives Verified 06/28/17 08:59 Home Medications: Ambulatory Orders Acetaminophen W/ Codeine #3 [Tylenol # 3] 1 - 2 combo PO Q4H PRN #15 tablet MDD 8 06/28/17 Ondansetron [Zofran Odt -] 4 mg SL TID PRN #15 od.tablet 06/28/17 Morphine *Sr* [Ms Contin -] 15 mg PO Q8H PRN #6 tablet.sa MDD 3 11/07/17 Review of Systems - Review of Systems Able to Perform ROS?: Yes Comments:: 11/07/17 18:46 GENERAL/CONSTITUTIONAL: No fever or chills. No weakness. HEAD, EYES, EARS, NOSE AND THROAT: No change in vision. No ear pain or discharge. No sore throat. CARDIOVASCULAR: No chest pain or shortness of breath. RESPIRATORY: No cough, wheezing, or hemoptysis. GASTROINTESTINAL: +Abdominal pain. No nausea, vomiting, diarrhea or constipation. GENITOURINARY: No dysuria, frequency, or change in urination. MUSCULOSKELETAL: No joint or muscle swelling or pain. No neck or back pain. SKIN: No rash NEUROLOGIC: No headache, vertigo, loss of consciousness, or change in strength/ sensation. ENDOCRINE: No increased thirst. No abnormal weight change. HEMATOLOGIC/LYMPHATIC: No anemia, easy bleeding, or history of blood clots. ALLERGIC/IMMUNOLOGIC: No hives or skin allergy. <Karlee Daniels - Last Filed: 11/07/17 18:49> *Physical Exam - Vital Signs Last Vital Signs Temp Pulse Resp BP Pulse Ox 97.6 F 70 20 150/88 99 11/07/17 17:20 11/07/17 17:20 11/07/17 17:20 11/07/17 17:20 11/07/17 17:20 <Silvano Escobedo - Last Filed: 11/07/17 18:39> - Vital Signs Last Vital Signs Temp Pulse Resp BP Pulse Ox 97.6 F 70 20 150/88 99 11/07/17 17:20 11/07/17 17:20 11/07/17 17:20 11/07/17 17:20 11/07/17 17:20 - Physical Exam Comments: 11/07/17 18:48 GENERAL: Awake, alert, and fully oriented, in no acute distress HEAD: No signs of trauma EYES: PERRLA, EOMI, sclera anicteric, conjunctiva clear ENT: Auricles normal inspection, hearing grossly normal, nares patent, oropharynx clear without exudates. Moist mucosa NECK: Normal ROM, supple, no lymphadenopathy, JVD, or masses LUNGS: Breath sounds equal, clear to auscultation bilaterally. No wheezes, and no crackles HEART: Regular rate and rhythm, normal S1 and S2, no murmurs, rubs or gallops ABDOMEN: + epigastric ttp. Soft, normoactive bowel sounds. No guarding, no rebound. No masses EXTREMITIES: Normal range of motion, no edema. No clubbing or cyanosis. No cords, erythema, or tenderness NEUROLOGICAL: Cranial nerves II through XII grossly intact. Normal speech, normal gait SKIN: Warm, Dry, normal turgor, no rashes or lesions noted. <Karlee Daniels - Last Filed: 11/07/17 18:49> ED Treatment Course - LABORATORY CBC & Chemistry Diagram: 11/07/17 17:50 11/07/17 17:50 - ADDITIONAL ORDERS Additional order review: Laboratory Results 11/07/17 17:50 Sodium 138 Potassium 3.9 Chloride 100 Carbon Dioxide 26 Anion Gap 12 BUN 14 Creatinine 0.8 Creat Clearance w eGFR > 60 Random Glucose 138 H Calcium 9.6 Total Bilirubin 0.9 AST 17 ALT 20 Alkaline Phosphatase 47 Total Protein 6.9 Albumin 4.2 11/07/17 17:50 RBC 5.06 MCV 89.1 MCHC 34.5 RDW 12.4 MPV 9.4 Neutrophils % 89.6 H Lymphocytes % 7.5 L Monocytes % 2.3 L Eosinophils % 0.0 Basophils % 0.6 - Medications Given in the ED: ED Medications Discontinued Medications Generic Name Dose Route Start Last Admin Trade Name Freq PRN Reason Stop Dose Admin Sodium Chloride 1,000 mls @ 1,000 mls/hr 11/07/17 17:24 11/07/17 17:56 Normal Saline - IV 11/07/17 18:23 1,000 mls/hr ASDIR STA Administration Morphine Sulfate 4 mg 11/07/17 17:24 11/07/17 17:55 Morphine Injection - IVPUSH 11/07/17 17:25 4 mg ONCE ONE Administration Ondansetron HCl 4 mg 11/07/17 17:24 11/07/17 17:56 Zofran Injection IVPB 11/07/17 17:25 4 mg ONCE ONE Administration <Silvano Escobedo - Last Filed: 11/07/17 18:39> - LABORATORY CBC & Chemistry Diagram: 11/07/17 17:50 11/07/17 17:50 - ADDITIONAL ORDERS Additional order review: Laboratory Results 11/07/17 17:50 Sodium 138 Potassium 3.9 Chloride 100 Carbon Dioxide 26 Anion Gap 12 BUN 14 Creatinine 0.8 Creat Clearance w eGFR > 60 Random Glucose 138 H Calcium 9.6 Total Bilirubin 0.9 AST 17 ALT 20 Alkaline Phosphatase 47 Total Protein 6.9 Albumin 4.2 11/07/17 17:50 RBC 5.06 MCV 89.1 MCHC 34.5 RDW 12.4 MPV 9.4 Neutrophils % 89.6 H Lymphocytes % 7.5 L Monocytes % 2.3 L Eosinophils % 0.0 Basophils % 0.6 - Medications Given in the ED: ED Medications Discontinued Medications Generic Name Dose Route Start Last Admin Trade Name Nba PRN Reason Stop Dose Admin Sodium Chloride 1,000 mls @ 1,000 mls/hr 11/07/17 17:24 11/07/17 17:56 Normal Saline - IV 11/07/17 18:23 1,000 mls/hr ASDIR STA Administration Morphine Sulfate 4 mg 11/07/17 17:24 11/07/17 17:55 Morphine Injection - IVPUSH 11/07/17 17:25 4 mg ONCE ONE Administration Ondansetron HCl 4 mg 11/07/17 17:24 11/07/17 17:56 Zofran Injection IVPB 11/07/17 17:25 4 mg ONCE ONE Administration <Karlee Daniels - Last Filed: 11/07/17 18:49> Medical Decision Making - Medical Decision Making 11/07/17 18:39 A portion of this note was documented by scribe services under my direction. I have reviewed the details of the note, within reason, and agree with the documentation with the following case summary and management plan written by me. Patient treated in the ED. Nursing notes are reviewed and incorporated into the medical decision-making. Vital signs reviewed. Peripheral IV access obtained by the nurse, laboratory studies are drawn and sent, reviewed and interpreted by myself. Vital Signs Temp Pulse Resp BP Pulse Ox 97.6 F 70 20 150/88 99 11/07/17 17:20 11/07/17 17:20 11/07/17 17:20 11/07/17 17:20 11/07/17 17:20 61-year-old female with past medical history of Recurrent chronic abdominal pain status post colorectal cancer status post radiation presents with acute on chronic abdominal pain. Patient reports that this is acute on chronic low abdominal pain and she follows up with Dr. Javier at [facility]. States that these episodes of abdominal pain occurs and that improved on its own. However, patient reports that when the pain is so severe she needs IV medications. Denies fevers or chills. Denies any new or changed symptoms. Came to the ED for further evaluation. The blood work is reassuring and the patient reports feeling much better after medications. She'll be driven home by her friend. I suspect this is her acute on chronic abdominal pain and that other acute processes are unlikely. Patient does have follow-up with a GI physician over at [place]. Return precautions given. Patient likely go home. I discussed the physical exam findings, ancillary test results and final diagnoses with the patient. I answered all of the patient's questions. The patient was satisfied with the care received and felt comfortable with the discharge plan and treatment plan. The patient will call their primary care physician within 24 hours to arrange follow-up and will return to the Emergency Department with any new, persistant or worsening symptoms. <Silvano Escboedo - Last Filed: 11/07/17 18:39> *DC/Admit/Observation/Transfer - Discharge Dispostion Admit: No <Silvano Escobedo - Last Filed: 11/07/17 18:39> - Attestations Scribe Attestion: 11/07/17 18:48 Documentation prepared by Karlee Daniels, acting as medical apparatus model maker for Silvano Escobedo MD. <Karlee Daniels - Last Filed: 11/07/17 18:49> Diagnosis at time of Disposition: Chronic abdominal pain - Discharge Dispostion Disposition: HOME Condition at time of disposition: Improved - Prescriptions Prescriptions: Morphine *Sr* [Ms Contin -] 15 mg PO Q8H PRN #6 tablet.sa MDD 3 PRN Reason: Pain - Patient Instructions Printed Discharge Instructions: DI for Abdominal Pain-Adult Additional Instructions: Please bring a copy of your blood work to your doctor. Drink plenty of fluids and rest.
[2017-11-07] MEDS ORDERED: FAMOTIDINE 20 MG/50 ML IVPB 20 MG/50 ML MG IVPB ONE (18:54)
[2017-11-07 19:20] VITALS: BP 108/50; PULSE 87; TEMP 98.4
== END 2017-11-07 19:21 | disposition home or self-care (01) ==
LOC: FER 17:18
PROC: 3E033GC Introduction of Other Therapeutic Substance into Peripheral Vein, Percutaneous Approach (ICD-10-PCS; principal; 2017-11-07)
PROC: 3E033NZ Introduction of Analgesics, Hypnotics, Sedatives into Peripheral Vein, Percutaneous Approach (ICD-10-PCS; 2017-11-07)
PROC: 3E0337Z Introduction of Electrolytic and Water Balance Substance into Peripheral Vein, Percutaneous Approach (ICD-10-PCS; 2017-11-07)
DX: R10.9 Unspecified abdominal pain (principal); G89.29 Other chronic pain; Z85.038 Personal history of other malignant neoplasm of large intestine
CPT/HCPCS: 36415; 80053; 85025; 99282-25

== ENCOUNTER 2019-02-27 06:18 | Emergency (ER) | payer BC | END 2019-02-27 09:51 | disposition home or self-care (01) | LOC: FER 06:18 ==

== ENCOUNTER 2019-09-24 05:43 | Emergency (ER) | payer BC ==
--- NOTE | 2019-09-24 05:55 | PDOC ---
History of Present Illness - General Chief Complaint: Nausea/Vomiting Stated Complaint: VOMITING SINCE LAST NIGHT Time Seen by Provider: 09/24/19 05:53 History Source: Patient Exam Limitations: No Limitations - History of Present Illness Initial Comments: 09/24/19 06:00 This is a 63-year-old female comes in complaining of associated patient states she has a history of cancer the past for which she received radiation abdominally and has these bouts intermittently. Patient denies urinary fevers or chills. Allergies: as per nursing notes Past Medical History: none Social history: Lives with family. No smoking. No alcohol. No illicit drugs. Surgical history: None General: No fevers or chills, no weakness, no weight loss HEENT: No change in vision. No sore throat,. No ear pain CardioVascular: no chest discomfort. No shortness of breath Respiratory:No cough, or wheezing. Gastrointestinal: + nausea, +vomiting, diarrhea or constipation, No rectal bleeding Genitourinary: No dysuria, hematuria, or frequency Musculoskeletal: No joint or muscle pain or swelling Neurologic: No headache, vertigo, dizziness or loss of consciousness Psychiatric: nor depression Skin: No rashes or easy bruising Endocrine: no increased thirst or abnormal weight change Allergic: no skin or latex allergy All other systems reviewed and normal Exam: General: Well-nourished well-developed individual, no acute distress HEENT: Throat: Normal, tonsils normal, no erythema or exudate Neck: Supple, no meningeal signs, no lymphadenopathy Eyes::Pupils equal reactive and round, extraocular motion intact Chest: Nontender to palpation Cardiac: S1-S2 normal, regular rate and rhythm, no murmurs rubs or gallops Respiratory: Lungs clear to auscultation bilateral Abdomen: Soft, nsl distended, normal bowel sounds, tender to palpation in the epigastric area no guarding or rebound Extremities: Warm, dry, no cyanosis, clubbing, or edema Skin: No rashes Neuro: Alert and oriented x3, CN II - XII intact, nonfocal exam with normal strength, normal sensation, normal reflexes, normal gait, Psych: Normal mood and affect 09/24/19 07:00 This patient was transferred to Dr. Root at 7 AM Case discussed in detail with oncoming Emergency Physician including history, physical exam and ancillary studies. Oncoming Emergency Physician has assumed care for the patient and will complete the evaluation and treatment. Patient is aware of the plan. Pt is clinically unchanged and stable. Past History - Past Medical History Allergies/Adverse Reactions: Allergies Allergy/AdvReac Type Severity Reaction Status Date / Time Penicillins Allergy Intermediate Hives Verified 09/24/19 05:51 Home Medications: Ambulatory Orders Metoclopramide HCl [Reglan -] 10 mg PO TID PRN #9 tablet 09/24/19 Cancer: Yes (squamous cell, CA of anus) COPD: No GI Disorders: Yes (ABD PAIN) - Surgical History Abdominal Surgery: Yes (Lap Fibroidectomy) - Psycho Social/Smoking Cessation Hx Smoking Status: No Smoking History: Never smoked Have you smoked in the past 12 months: No Number of Cigarettes Smoked Daily: 0 Hx Alcohol Use: No Drug/Substance Use Hx: No Substance Use Type: Alcohol Hx Substance Use Treatment: No ED Treatment Course - LABORATORY CBC & Chemistry Diagram: 09/24/19 06:00 09/24/19 06:00 Discharge - Discharge Information Problems reviewed: Yes Clinical Impression/Diagnosis: Abdominal pain Condition: Stable Disposition: HOME - Additional Discharge Information Prescriptions: Metoclopramide HCl [Reglan -] 10 mg PO TID PRN #9 tablet PRN Reason: nausea vomiting - Follow up/Referral Referrals: Miles Javier MD [Non Staff, Medical] - - Patient Discharge Instructions Patient Printed Discharge Instructions: DI for Abdominal Pain-Adult, DI for Nausea -- Adult Additional Instructions: 1) Please follow-up with your primary care doctor in the next 1-2 days. Please call tomorrow for for any urgent issues. 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 2) You were given a copy of the tests performed today. Please bring the results with you and review them with your primary care doctor. Your laboratory / results were normal 3) If you have any worsening of symptoms or any other concerns please return to the ED immediately. Return if worsening symptoms including fevers, headache, vomiting, visual or hearing disturbances, abdominal pain recurrence/vomiting in the next 8-12 hours, chest pain, shortness of breath, syncope, dehydration, inability to take things by mouth/vomiting, bloody stools, altered mental status , or worsening concerning symptoms. 4) Please continue taking your home medications as directed. your medications on discharge include reglan three times a day as needed for nausea/vomiting . side effects may include feeling restless/jittery. do not drink alcohol with your medications. Stay well hydrated and rest adequately. avoid potential food triggers If you cannot follow-up with your primary care doctor please return to the ED - Post Discharge Activity
[2019-09-24 05:56] VITALS: TEMP 97.7; BMI 22.4
[2019-09-24] MEDS ORDERED: morphine SULFATE 4 MG/ML VIAL ONE (05:57)
[2019-09-24] MEDS ORDERED: morphine CARPU-JECT 4 MG/1 ML DISP.SYRIN IVPUSH ONE (05:57)
[2019-09-24] MEDS ORDERED: SODIUM CHLORIDE 1,000 ML IV ONE (05:57)
[2019-09-24] MEDS ORDERED: ONDANSETRON 4 MG/2 ML VIAL ONE (05:57)
[2019-09-24] MEDS ORDERED: ONDANSETRON 4 MG/2 ML VIAL IVPB ONE (05:57)
--- NOTE | 2019-09-24 07:17 | PDOC ---
*Physical Exam - Vital Signs Last Vital Signs Temp Pulse Resp BP Pulse Ox 97.7 F 72 18 149/91 100 09/24/19 05:52 09/24/19 05:52 09/24/19 05:52 09/24/19 05:52 09/24/19 05:52 ED Treatment Course - LABORATORY CBC & Chemistry Diagram: 09/24/19 06:00 09/24/19 06:00 - Medications Given in the ED: ED Medications Discontinued Medications Generic Name Dose Route Start Last Admin Trade Name Nba PRN Reason Stop Dose Admin Sodium Chloride 1,000 mls @ 1,000 mls/hr 09/24/19 05:57 09/24/19 06:10 Normal Saline - IV 09/24/19 06:56 1,000 mls/hr .Q1H ONE Administration Morphine Sulfate 4 mg 09/24/19 05:57 09/24/19 06:11 Morphine Injection - IVPUSH 09/24/19 05:58 4 mg ONCE ONE Administration Ondansetron HCl 4 mg 09/24/19 05:57 09/24/19 06:11 Zofran Injection IVPB 09/24/19 05:58 4 mg ONCE ONE Administration Medical Decision Making - Medical Decision Making 09/24/19 07:16 63-year-old female with past medical history of Recurrent chronic abdominal pain status post colorectal cancer status post radiation presents with acute on chronic abdominal pain. Patient reports that this is acute on chronic low abdominal pain and she follows up with Dr. Javier at [facility]. signed out from Dr Stewart at 7pm pending labs and reeval given IVF, zofran and morphine, reassessment Vital Signs Temp Pulse Resp BP Pulse Ox 97.7 F 72 18 149/91 100 09/24/19 05:52 09/24/19 05:52 09/24/19 05:52 09/24/19 05:52 09/24/19 05:52 Abdomen Reassessment: The patient appears comfortable and states that pain is improved. Given medications - zofran/IVF, morphine, additional reglan with clinical improvement. Tolerating oral intake. Vital signs reviewed and are normal. On repeat physical exam, the abdomen is soft and nontender, no suggestive findings for acute abdominal process at this time. +flatus, last BM last night. pt states maybe she ate some carrots that triggered her AP. she had four episodes of NBNB emesis [employer], but since resolved since ED visit. no signs concerning for peritonitis/obstruction no systemic findings, no f/c. All diagnostics tests reviewed and discussed with the patient. The patient was advised that even though there is no evidence of a surgical emergency at this time, sometimes this is not visible in the labs early in a disease course and that if there is additional pain they are to return for repeat evaluation. The patient stated understanding of this, has decision making capacity and is discharged in stable condition. The patient was instructed to return to the emergency department for re-evaluation in 8-12 hours and sooner if they feel worse in any way. instructed to f/u Dr Javier, her GI at [facility] for further management and workup. 09/24/19 08:17 09/24/19 08:21 Discharge - Discharge Information Problems reviewed: Yes Clinical Impression/Diagnosis: Abdominal pain Condition: Stable Disposition: HOME - Admission No - Additional Discharge Information Prescriptions: Metoclopramide HCl [Reglan -] 10 mg PO TID PRN #9 tablet PRN Reason: nausea vomiting - Follow up/Referral Referrals: Miles Javier MD [Non Staff, Medical] - - Patient Discharge Instructions Patient Printed Discharge Instructions: DI for Abdominal Pain-Adult, DI for Nausea -- Adult Additional Instructions: 1) Please follow-up with your primary care doctor in the next 1-2 days. Please call tomorrow for for any urgent issues. you are to follow with your health care liaison, Dr Javier for your abdominal pain. 2) You were given a copy of the tests performed today. Please bring the results with you and review them with your primary care doctor. Your laboratory / results were normal 3) If you have any worsening of symptoms or any other concerns please return to the ED immediately. Return if worsening symptoms including fevers, headache, vomiting, visual or hearing disturbances, abdominal pain recurrence/vomiting in the next 8-12 hours, chest pain, shortness of breath, syncope, dehydration, inability to take things by mouth/vomiting, bloody stools, altered mental status , or worsening concerning symptoms. 4) Please continue taking your home medications as directed. your medications on discharge include reglan three times a day as needed for nausea/vomiting . side effects may include feeling restless/jittery. do not drink alcohol with your medications. Stay well hydrated and rest adequately. avoid potential food triggers If you cannot follow-up with your primary care doctor please return to the ED - Post Discharge Activity
[2019-09-24 07:55] LABS: BASO % 0.3 % (0-2.0); HEMATOCRIT 44.3 % (32.4-45.2); HEMOGLOBIN 15.3 GM/dL (10.7-15.3); MCH 31.6 pg (25.7-33.7); MCHC 34.6 g/dl (32.0-36.0); MEAN CELL VOLUME 91.2 fl (80-96); MEAN PLT VOLUME 9.3 fl (7.5-11.1); MONO % 3.5 % (3.8-10.2); NEUT % 88.2 % (42.8-82.8); PLATELET COUNT 234 K/MM3 (134-434); RBC 4.86 M/mm3 (3.60-5.2); RDW 13.3 % (11.6-15.6); WHITE BLOOD COUNT 8.6 K/mm3 (4.0-10.0)
[2019-09-24 08:09] LABS: ALBUMIN 4.1 g/dl (3.4-5.0); BILIRUBIN,TOTAL 0.4 mg/dL (0.2-1); BLOOD UREA NITROGEN 20.9 mg/dL (7-18); CALCIUM 9.1 mg/dL (8.5-10.1); CREATININE 1.1 mg/dL (0.55-1.3); POTASSIUM 4.1 mmol/L (3.5-5.1); TOT PROT 7.3 g/dl (6.4-8.2)
[2019-09-24] MEDS ORDERED: METOCLOPRAMIDE HCL INJECTION 10 MG/2 ML VIAL ONE (08:16)
[2019-09-24] MEDS ORDERED: METOCLOPRAMIDE HCL INJECTION 10 MG/2 ML VIAL IVPUSH ONE (08:17)
[2019-09-24 08:26] VITALS: BP 104/58; PULSE 78
== END 2019-09-24 09:23 | disposition home or self-care (01) ==
LOC: FER 05:43
PROC: 3E033GC Introduction of Other Therapeutic Substance into Peripheral Vein, Percutaneous Approach (ICD-10-PCS; principal; 2019-09-24)
PROC: 3E033NZ Introduction of Analgesics, Hypnotics, Sedatives into Peripheral Vein, Percutaneous Approach (ICD-10-PCS; 2019-09-24)
DX: R10.9 Unspecified abdominal pain (principal); Z88.0 Allergy status to penicillin; Z85.828 Personal history of other malignant neoplasm of skin
CPT/HCPCS: 36415; 80053; 85025; 99282-25; J7030

== ENCOUNTER 2020-06-16 06:02 | Emergency (ER) | payer BC ==
--- OUTSIDE RECORDS SUMMARY | 2020-06-16 06:13 | XMS ---
:1955 Author Organization [facility] Support Name Relationship Address Phone [facility] Unavailable [address] [phone] [place] [address] YEHUDA PASTOR [address] [facility] [place] [address] Re-disclosure Warning The records that you are about to access may contain information from federally- assisted alcohol or drug abuse programs. If such information is present, then the following federally mandated warning applies: This information has been disclosed to you from records protected by federal confidentiality rules (42 CFR part 2). The federal rules prohibit you from making any further disclosure of this information unless further disclosure is expressly permitted by the written consent of the person to whom it pertains or as otherwise permitted by 42 CFR part 2. A general authorization for the release of medical or other information is NOT sufficient for this purpose. The Federal rules restrict any use of the information to criminally investigate or prosecute any alcohol or drug abuse patient.The records that you are about to access may contain highly sensitive health information, the redisclosure of which is protected by Article 27-F of the [facility] Public Health law. If you continue you may haveaccess to information: Regarding HIV / AIDS; Provided by facilities licensed or operated by the [facility] Office of Mental Health; or Provided by the [facility] Office for People With Developmental Disabilities. If such information is present, then the following [facility] mandated warning applies: This information has been disclosed to you from confidential records which are protected by state law. State law prohibits you from making any further disclosure of this information without the specific written consent of the person to whom it pertains, or as otherwise permitted by law. Any unauthorized further disclosure in violation of state law may result in a fine or chcf sentence or both. A general authorization for the release of medical or other information is NOT sufficient authorization for further disclosure. Insurance Providers Payer name Policy type / Policy ID Covered Covered green party's Policy Plan Coverage type green party ID relationship to Heath Information heath BC PPO [id number] SP [id number] PPO [id number] SP [id number] PPO [id number] SP [id number]
[2020-06-16 06:17] VITALS: TEMP 97.9; BMI 21.4
--- NOTE | 2020-06-16 06:21 | PDOC ---
History of Present Illness - General Chief Complaint: Pain, Acute Stated Complaint: ABDOMINAL PAIN,VOMITING Time Seen by Provider: 06/16/20 06:21 History Source: Patient Exam Limitations: No Limitations - History of Present Illness Initial Comments: 06/16/20 06:37 This is a 64-year-old female who has a long history of intermittent episodes of abdominal pain associated with nausea and vomiting. Patient is status post chemo for colorectal cancer. Patient has rescue meds at home that she ran out of including Zofran and morphine. Patient said this is a typical episode for he r. And has been vomiting since yesterday. I have seen her several times in the past for similar episodes. Patient denies any fevers, chills, cough or congestion. Patient denies any other symptoms. Allergies: as per nursing notes Past Medical History: none Social history: Lives with family. No smoking. No alcohol. No illicit drugs. Surgical history: None General: No fevers or chills, no weakness, no weight loss HEENT: No change in vision. No sore throat,. No ear pain CardioVascular: no chest discomfort. No shortness of breath Respiratory:No cough, or wheezing. Gastrointestinal: + nausea, vomiting, diarrhea no constipation, No rectal bleeding Genitourinary: No dysuria, hematuria, or frequency Musculoskeletal: No joint or muscle pain or swelling Neurologic: No headache, vertigo, dizziness or loss of consciousness Psychiatric: nor depression Skin: No rashes or easy bruising Endocrine: no increased thirst or abnormal weight change Allergic: no skin or latex allergy All other systems reviewed and normal Exam: General: Well-nourished well-developed individual, no acute distress HEENT: Throat: Normal, tonsils normal, no erythema or exudate Neck: Supple, no meningeal signs, no lymphadenopathy Eyes::Pupils equal reactive and round, extraocular motion intact Chest: Nontender to palpation Cardiac: S1-S2 normal, regular rate and rhythm, no murmurs rubs or gallops Respiratory: Lungs clear to auscultation bilateral Abdomen: Soft, moderately distended with increased bowel sounds. There is mild tenderness to palpation diffusely Extremities: Warm, dry, no cyanosis, clubbing, or edema Skin: No rashes Neuro: Alert and oriented x3, CN II - XII intact, nonfocal exam with normal strength, normal sensation, normal reflexes, normal gait, Psych: Normal mood and affect Assessment and plan: This is a 64-year-old female with nausea and vomiting. Patient has episodes of nausea and vomiting that she normally is able to manage at home but ran out of her rescue meds. Patient work-up initiated including CBC, comp, IV fluids, morphine, Zofran. Past History - Medical History Allergies/Adverse Reactions: Allergies Allergy/AdvReac Type Severity Reaction Status Date / Time Penicillins Allergy Intermediate Hives Verified 06/16/20 06:04 Home Medications: Ambulatory Orders Ondansetron [Zofran *Odt*] 4 mg GT TID PRN #10 tab.rapdis 06/16/20 Oxycodone HCl/Acetaminophen [Percocet 5-325 mg Tablet] 1 tab PO Q6H PRN #15 tablet MDD 6 06/16/20 Cancer: Yes (squamous cell, CA of anus) COPD: No GI Disorders: Yes (ABD PAIN) - Surgical History Abdominal Surgery: Yes (Lap Fibroidectomy) - Psycho-Social/Smoking History Smoking Status: No Smoking History: Former smoker Have you smoked in the past 12 months: No Number of Cigarettes Smoked Daily: 0 If you are a former smoker, when did you quit?: 25 Information on smoking cessation initiated: No - Substance Abuse Hx (Audit-C & DAST Scrn) How often the patient has a drink containing alcohol: Never Score: In Men: 4 or > Positive; In Women: 3 or > Positive: 0 Screen Result (Pos requires Nsg. Audit-10AR): Negative In the last yr the pt used illegal drug/Rx for NonMed reason: No Score: Yes response is considered Positive: 0 Screen Result (Positive result requires Nsg. DAST-10): Negative *Physical Exam - Vital Signs Last Vital Signs Temp Pulse Resp BP Pulse Ox 97.9 F 79 18 116/82 99 06/16/20 06:14 06/16/20 06:14 06/16/20 06:14 06/16/20 06:14 06/16/20 06:14 ED Treatment Course - LABORATORY CBC & Chemistry Diagram: 06/16/20 06:30 06/16/20 06:30 Discharge - Discharge Information Problems reviewed: Yes Clinical Impression/Diagnosis: Abdominal pain, Vomiting Condition: Improved Disposition: HOME - Additional Discharge Information Prescriptions: Oxycodone HCl/Acetaminophen [Percocet 5-325 mg Tablet] 1 tab PO Q6H PRN #15 tablet MDD 6 PRN Reason: Pain Ondansetron [Zofran *Odt*] 4 mg GT TID PRN #10 tab.rapdis PRN Reason: Nausea - Follow up/Referral - Patient Discharge Instructions Patient Printed Discharge Instructions: Acute Abdominal Pain Additional Instructions: you should follow up with your hotel clerk. call to schedule within one week. you can take percocet as needed for break through pain. take one every 6 hours as need. you can also take zofran 4 mg jojo 6 hours as needed for nausea. return for fever worsening pain, vomiting or any concerns. - Post Discharge Activity
[2020-06-16] MEDS ORDERED: SODIUM CHLORIDE 1,000 ML IV ONE (06:26)
[2020-06-16] MEDS ORDERED: ONDANSETRON 4 MG/2 ML VIAL IVPUSH ONE (06:26)
[2020-06-16] MEDS ORDERED: morphine CARPU-JECT 2 MG/1 ML DISP.SYRIN IVPUSH ONE (06:26)
[2020-06-16] MEDS ORDERED: HYOSCYAMINE SULFATE 0.125 MG *ODT PO ONE (06:27)
[2020-06-16] MEDS ORDERED: HYOSCYAMINE SULFATE 0.125 MG *ODT ONE (06:28)
[2020-06-16] MEDS ORDERED: morphine SULFATE 4 MG/ML VIAL ONE (06:28)
[2020-06-16] MEDS ORDERED: ONDANSETRON 4 MG/2 ML VIAL ONE (06:29)
[2020-06-16 09:34] LABS: ALBUMIN 4.2 g/dl (3.4-5.0); BILIRUBIN,TOTAL 0.6 mg/dL (0.2-1); BLOOD UREA NITROGEN 15.9 mg/dL (7-18); CALCIUM 9.9 mg/dL (8.5-10.1); CREATININE 0.9 mg/dL (0.55-1.3); POTASSIUM 3.9 mmol/L (3.5-5.1); TOT PROT 7.9 g/dl (6.4-8.2)
[2020-06-16 09:38] LABS: BASO % 0.2 % (0-2.0); HEMATOCRIT 48.1 % (32.4-45.2); HEMOGLOBIN 15.9 GM/dL (10.7-15.3); LYMPH % 6.5 % (8-40); MCH 30.4 pg (25.7-33.7); MCHC 33.1 g/dl (32.0-36.0); MEAN CELL VOLUME 91.7 fl (80-96); MEAN PLT VOLUME 9.3 fl (7.5-11.1); MONO % 2.8 % (3.8-10.2); NEUT % 90.5 % (42.8-82.8); PLATELET COUNT 257 K/MM3 (134-434); RBC 5.24 M/mm3 (3.60-5.2); RDW 13.2 % (11.6-15.6)
[2020-06-16 09:41] VITALS: BP 100/56; PULSE 67
--- NOTE | 2020-06-16 10:08 | PDOC ---
*Physical Exam - Vital Signs Last Vital Signs Temp Pulse Resp BP Pulse Ox 97.9 F 67 18 100/56 L 100 06/16/20 06:14 06/16/20 09:40 06/16/20 06:14 06/16/20 09:40 06/16/20 09:40 - Physical Exam 06/16/20 10:01 pt well appearing. abd soft nt nondistended. awake alert lungs clear bilat heart rr no mrg ED Treatment Course - LABORATORY CBC & Chemistry Diagram: 06/16/20 06:30 06/16/20 06:30 - ADDITIONAL ORDERS Additional order review: Laboratory Results 06/16/20 06:30 Sodium 139 Potassium 3.9 Chloride 101 Carbon Dioxide 29 Anion Gap 9 BUN 15.9 Creatinine 0.9 Est GFR (CKD-EPI)AfAm 78.32 Est GFR (CKD-EPI)NonAf 67.57 Random Glucose 154 H Calcium 9.9 Total Bilirubin 0.6 AST 18 ALT 27 Alkaline Phosphatase 74 Total Protein 7.9 Albumin 4.2 Lipase 115 06/16/20 06:30 RBC 5.24 H MCV 91.7 MCHC 33.1 RDW 13.2 MPV 9.3 Neutrophils % 90.5 H Lymphocytes % 6.5 L Monocytes % 2.8 L Eosinophils % 0.0 Basophils % 0.2 - Medications Given in the ED: ED Medications Discontinued Medications Generic Name Dose Route Start Last Admin Trade Name Freq PRN Reason Stop Dose Admin Hyoscyamine Sulfate 0.125 mg 06/16/20 06:27 06/16/20 06:37 Levsin Odt - PO 06/16/20 06:28 0.125 mg ONCE ONE Administration Sodium Chloride 1,000 mls @ 1,000 mls/hr 06/16/20 06:26 06/16/20 06:30 Normal Saline - IV 06/16/20 07:25 1,000 mls/hr .Q1H ONE Administration Morphine Sulfate 2 mg 06/16/20 06:26 06/16/20 06:37 Morphine Injection - IVPUSH 06/16/20 06:27 2 mg ONCE ONE Administration Ondansetron HCl 4 mg 06/16/20 06:26 06/16/20 06:37 Zofran Injection IVPUSH 06/16/20 06:27 4 mg ONCE ONE Administration Oxycodone/Acetaminophen 1 combo 06/16/20 09:20 06/16/20 09:15 Percocet 5/325 - PO 06/16/20 09:21 1 combo ONCE ONE Administration Medical Decision Making - Medical Decision Making 06/16/20 10:03 64yo F with h/o chronic abd pain, vomiting. h/o colon ca treated with chemo and radiation, noprior surgery, with frequent bouts of abd pain and vomiting. see a GI at [place] dr james. was seen over night for n/v and abd pain. states she ran out of meds. takes ms contin at home 15 mg. and zofran. states she has had scope in last year. has had prior imaging. last BM as yes terday, no abnormalities. since here in ed labs sent. pt feels better. would like to go home. labs normal. tolerating water. requesting prescription of medication to control breakthrouhg pain, vomiing. 06/16/20 10:28 istop performed, #: [id number], #: [id number] , #: [id number] no recent prescriptions. Discharge - Discharge Information Problems reviewed: Yes Clinical Impression/Diagnosis: Abdominal pain, Vomiting Condition: Improved Disposition: HOME - Admission No - Additional Discharge Information Prescriptions: Oxycodone HCl/Acetaminophen [Percocet 5-325 mg Tablet] 1 tab PO Q6H PRN #15 tablet MDD 6 PRN Reason: Pain Ondansetron [Zofran *Odt*] 4 mg GT TID PRN #10 tab.rapdis PRN Reason: Nausea Prescription Drug Monitoring Program (I-STOP) results: I-STOP reviewed and no issues identified - Follow up/Referral - Patient Discharge Instructions Patient Printed Discharge Instructions: Acute Abdominal Pain Additional Instructions: you should follow up with your performance solutions specialist. call to schedule within one week. you can take percocet as needed for break through pain. take one every 6 hours as need. you can also take zofran 4 mg jojo 6 hours as needed for nausea. return for fever worsening pain, vomiting or any concerns. - Post Discharge Activity
== END 2020-06-16 10:15 | disposition home or self-care (01) ==
LOC: FER 06:02
PROC: 3E033NZ Introduction of Analgesics, Hypnotics, Sedatives into Peripheral Vein, Percutaneous Approach (ICD-10-PCS; principal; 2020-06-16)
PROC: 3E033GC Introduction of Other Therapeutic Substance into Peripheral Vein, Percutaneous Approach (ICD-10-PCS; 2020-06-16)
PROC: 3E0337Z Introduction of Electrolytic and Water Balance Substance into Peripheral Vein, Percutaneous Approach (ICD-10-PCS; 2020-06-16)
DX: R10.9 Unspecified abdominal pain (principal)
CPT/HCPCS: 36415; 80053; 83690; 85025; 99284-25

== ENCOUNTER 2023-02-25 13:58 | Emergency (ER) | payer OTHER, BC ==
[2023-02-25 14:29] VITALS: BP 136/82; PULSE 75; RESP 20; TEMP 98.6; BMI 20.3
[2023-02-25] MEDS ORDERED: ONDANSETRON 4 MG/2 ML VIAL IVPUSH ONE (14:45)
[2023-02-25] MEDS ORDERED: SODIUM CHLORIDE 1,000 ML IV STA (14:45)
[2023-02-25] MEDS ORDERED: FAMOTIDINE 20 MG/50 ML IVPB 20 MG/50 ML MG IVPB ONE ×2 (14:45→15:06)
[2023-02-25] MEDS ORDERED: ACETAMINOPHEN 1000 MG/100 ML BAG IVPB ONE (14:45)
[2023-02-25] MEDS ORDERED: ONDANSETRON 4 MG/2 ML VIAL ONE (15:06)
[2023-02-25] MEDS ORDERED: ACETAMINOPHEN INJECTION 100 ML IVPB ONE (15:06)
[2023-02-25 15:29] LABS: HEMATOCRIT 47.1 % (32.4-45.2); MCHC 34.1 g/dl (32.0-36.0); MEAN CELL VOLUME 93.8 fl (80-96); MEAN PLT VOLUME 9.2 fl (7.5-11.1); PLATELET COUNT 211.6 10^3/uL (134-434); RBC 5.02 10^6/uL (3.60-5.2); RDW 14.1 % (11.6-15.6); WHITE BLOOD COUNT 6.6 10^3/uL (4.0-10.8)
[2023-02-25 15:47] LABS: ALBUMIN 3.9 g/dl (3.4-5.0); BILIRUBIN,TOTAL 0.7 mg/dl (0.2-1); BLOOD UREA NITROGEN 13.8 mg/dl (7-18); CALCIUM 9.3 mg/dl (8.5-10.1); CREATININE 0.8 mg/dl (0.6-1.3); POTASSIUM 4.2 mmol/L (3.5-5.1); SGOT/AST 17.3 U/L (15-37); SGPT/ALT 20.2 U/L (7-52); TOT PROT 6.1 g/dl (6.4-8.2)
[2023-02-25 16:20] LABS: PLATELET ESTIMATE ADEQUATE
== END 2023-02-25 16:55 | disposition home or self-care (01) ==
LOC: FER 13:58
PROC: 3E033GC Introduction of Other Therapeutic Substance into Peripheral Vein, Percutaneous Approach (ICD-10-PCS; principal; 2023-02-25)
PROC: 3E033GC Introduction of Other Therapeutic Substance into Peripheral Vein, Percutaneous Approach (ICD-10-PCS; 2023-02-25)
PROC: 3E033NZ Introduction of Analgesics, Hypnotics, Sedatives into Peripheral Vein, Percutaneous Approach (ICD-10-PCS; 2023-02-25)
DX: R11.2 Nausea with vomiting, unspecified (principal); R10.13 Epigastric pain; R14.0 Abdominal distension (gaseous)
CPT/HCPCS: 36415; 80053; 83690; 85027; 99284-25

== ENCOUNTER 2023-03-16 00:13 | Emergency (ER) | payer OTHER, BC ==
[2023-03-16 00:20] VITALS: BP 154/82; PULSE 73; RESP 16; TEMP 98.2; BMI 22.4
[2023-03-16] MEDS ORDERED: SODIUM CHLORIDE 1,000 ML IV STA ×2 (00:35→02:31)
[2023-03-16] MEDS ORDERED: ONDANSETRON 4 MG/2 ML VIAL IVPB ONE ×2 (00:35→02:27)
[2023-03-16] MEDS ORDERED: FAMOTIDINE 20 MG/50 ML IVPB 20 MG/50 ML MG IVPB ONE ×2 (00:36→00:47)
[2023-03-16] MEDS ORDERED: ONDANSETRON 4 MG/2 ML VIAL ONE ×2 (00:47→02:27)
[2023-03-16] MEDS ORDERED: morphine SULFATE 4 MG/ML VIAL ONE (01:05)
[2023-03-16] MEDS ORDERED: morphine CARPU-JECT 2 MG/1 ML DISP.SYRIN IVPUSH ONE (01:16)
[2023-03-16 02:18] LABS: CALCIUM 9.9 mg/dL (8.5-10.1)
[2023-03-16 02:19] LABS: ALBUMIN 3.7 g/dl (3.4-5.0); BLOOD UREA NITROGEN 14.6 mg/dL (7-18)
[2023-03-16 02:22] LABS: CREATININE 1.1 mg/dL (0.55-1.3)
[2023-03-16 02:24] LABS: BILIRUBIN,TOTAL 0.5 mg/dL (0.2-1); TOT PROT 7.1 g/dl (6.4-8.2)
[2023-03-16 02:25] LABS: BASO % 0.4 % (0-2.0); EOS % 0.4 % (0-4.5); HEMATOCRIT 45.7 % (32.4-45.2); HEMOGLOBIN 14.8 GM/dL (10.7-15.3); LYMPH % 9.6 % (8-40); MCH 30.2 pg (25.7-33.7); MCHC 32.5 g/dl (32.0-36.0); MEAN PLT VOLUME 10.4 fl (7.5-11.1); MONO % 3.9 % (3.8-10.2); NEUT % 85.7 % (42.8-82.8); PLATELET COUNT 304 10^3/uL (134-434); RBC 4.91 M/mm3 (3.60-5.2); RDW 13.5 % (11.6-15.6); WHITE BLOOD COUNT 9.8 K/mm3 (4.0-10.0)
[2023-03-16 03:49] LABS: POTASSIUM 4.4 mmol/L (3.5-5.1)
[2023-03-16 03:51] LABS: CALCIUM 8.6 mg/dL (8.5-10.1)
[2023-03-16 03:52] LABS: ALBUMIN 3.1 g/dl (3.4-5.0)
[2023-03-16] MEDS ORDERED: KETOROLAC TROMETHAMINE 30 MG/1 ML VIAL ONE (03:52)
[2023-03-16 03:54] LABS: CREATININE 0.8 mg/dL (0.55-1.3)
[2023-03-16 03:56] LABS: BILIRUBIN,TOTAL 0.4 mg/dL (0.2-1); TOT PROT 5.6 g/dl (6.4-8.2)
[2023-03-16] MEDS ORDERED: KETOROLAC TROMETHAMINE 30 MG/1 ML VIAL IVPUSH ONE (06:20)
== END 2023-03-16 04:29 | disposition home or self-care (01) ==
LOC: FER 00:13
PROC: 3E033GC Introduction of Other Therapeutic Substance into Peripheral Vein, Percutaneous Approach (ICD-10-PCS; principal; 2023-03-16)
PROC: 3E0333Z Introduction of Anti-inflammatory into Peripheral Vein, Percutaneous Approach (ICD-10-PCS; 2023-03-16)
PROC: 3E033GC Introduction of Other Therapeutic Substance into Peripheral Vein, Percutaneous Approach (ICD-10-PCS; 2023-03-16)
PROC: 3E033GC Introduction of Other Therapeutic Substance into Peripheral Vein, Percutaneous Approach (ICD-10-PCS; 2023-03-16)
PROC: 3E033GC Introduction of Other Therapeutic Substance into Peripheral Vein, Percutaneous Approach (ICD-10-PCS; 2023-03-16)
PROC: 3E0337Z Introduction of Electrolytic and Water Balance Substance into Peripheral Vein, Percutaneous Approach (ICD-10-PCS; 2023-03-16)
DX: R11.2 Nausea with vomiting, unspecified (principal); R10.13 Epigastric pain; G89.29 Other chronic pain
CPT/HCPCS: 36415; 80053; 85025; 99284-25

== ENCOUNTER 2024-03-18 00:10 | Emergency (ER) | payer OTHER, BC ==
[2024-03-18 00:24] VITALS: BP 144/93; PULSE 78; RESP 16; TEMP 97.5; BMI 22.5
[2024-03-18] MEDS ORDERED: FAMOTIDINE 20 MG/50 ML IVPB 20 MG/50 ML MG IVPB ONE (00:41)
[2024-03-18] MEDS ORDERED: ONDANSETRON 4 MG/2 ML VIAL ONE (00:41)
[2024-03-18] MEDS: SODIUM CHLORIDE 1,000 ML IV STA (00:43)
[2024-03-18] MEDS: FAMOTIDINE 20 MG/50 ML IVPB 20 MG/50 ML MG IVPB ONE (00:44)
[2024-03-18] MEDS: ONDANSETRON 4 MG/2 ML VIAL IVPUSH ONE (00:44)
[2024-03-18] MEDS: morphine CARPU-JECT 2 MG/1 ML DISP.SYRIN IVPUSH ONE (01:13)
[2024-03-18 01:34] LABS: BASO % 0.3 % (0-2.0); EOS % 0.1 % (0-4.5); HEMATOCRIT 43.8 % (32.4-45.2); HEMOGLOBIN 14.9 GM/dL (10.7-15.3); LYMPH % 7.9 % (8-40); MCH 30.8 pg (25.7-33.7); MCHC 34.2 g/dl (32.0-36.0); MEAN CELL VOLUME 90.1 fl (80-96); MONO % 3.7 % (3.8-10.2); PLATELET COUNT 240 10^3/uL (134-434); RBC 4.86 M/mm3 (3.60-5.2); RDW 13.8 % (11.6-15.6); WHITE BLOOD COUNT 10.1 K/mm3 (4.0-10.0)
[2024-03-18 01:52] LABS: POTASSIUM 4.2 mmol/L (3.5-5.1)
[2024-03-18 01:54] LABS: CALCIUM 9.5 mg/dL (8.5-10.1)
[2024-03-18 01:56] LABS: ALBUMIN 3.6 g/dl (3.4-5.0)
[2024-03-18 01:59] LABS: CREATININE 0.9 mg/dL (0.55-1.3)
[2024-03-18 02:00] LABS: BILIRUBIN,TOTAL 0.6 mg/dL (0.2-1); TOT PROT 6.8 g/dl (6.4-8.2)
[2024-03-18] MEDS ORDERED: ACETAMINOPHEN INJECTION 100 ML IVPB ONE (04:11)
[2024-03-18] MEDS: ACETAMINOPHEN 1000 MG/100 ML BAG IVPB ONE (04:15)
== END 2024-03-18 04:42 | disposition home or self-care (01) ==
LOC: FER 00:10
PROC: 3E033GC Introduction of Other Therapeutic Substance into Peripheral Vein, Percutaneous Approach (ICD-10-PCS; principal; 2024-03-18)
PROC: 3E033NZ Introduction of Analgesics, Hypnotics, Sedatives into Peripheral Vein, Percutaneous Approach (ICD-10-PCS; 2024-03-18)
PROC: 3E033NZ Introduction of Analgesics, Hypnotics, Sedatives into Peripheral Vein, Percutaneous Approach (ICD-10-PCS; 2024-03-18)
PROC: 3E033NZ Introduction of Analgesics, Hypnotics, Sedatives into Peripheral Vein, Percutaneous Approach (ICD-10-PCS; 2024-03-18)
DX: R10.13 Epigastric pain (principal); R11.2 Nausea with vomiting, unspecified
CPT/HCPCS: 36415; 80053; 85025; 99284-25; J0131